=== PATIENT | female | born 1955 | race Caucasian/White ===

== ENCOUNTER 2023-03-04 00:18 | Inpatient (IN) | payer MEDICARE, SELFPAY ==
[2023-03-04] VITALS (34 sets, daily range): BP systolic 101–139; BP diastolic 49–71; PULSE 70–108; RESP 14–24; TEMP 36.3–37.3; O2SAT 90–96
--- NOTE | 2023-03-04 00:35 | ED_ITS ---
HPI - General Adult General Time Seen by Provider: 00:35 Date Seen: 03/04/23 Chief complaint: Shortness of Breath/Dyspnea Stated complaint: difficulty breathing Time Seen by Provider: 03/04/23 00:20 Source: patient, RN notes reviewed and old records reviewed Mode of arrival: ambulatory Limitations: no limitations History of Present Illness HPI narrative: 67-year-old female who comes in with shortness of breath. This is been going on since yesterday. She reports that she gets ?spasms? when she tries to take a big breath in. She denies chest pain, nausea, vomiting, diarrhea. Says she was constipated but has treated that at home. Denies lower extremity swelling. Denies cough or sinus congestion. Denies any medical problems but does not doctor frequently, does smoke cigarettes. Related Data Home Medications Medication Instructions Recorded Confirmed No Known Home Medications 03/04/23 03/04/23 Allergies Allergy/AdvReac Type Severity Reaction Status Date / Time No Known Drug Allergies Allergy Verified 03/04/23 00:26 PFSH PFS Social History Smoking Status: Current every day smoker Non-prescribed substance use: denies use Exam Narrative: Exam Narrative: General: Well-developed and well-nourished, no acute distress Head: Atraumatic and normocephalic Eyes: Pupils are equal reactive, extraocular motions intact, conjunctiva clear ENT: External nose and ears are normal, posterior pharynx without erythema or exudate Neck: No midline cervical tenderness, full spontaneous range of motion the neck, trachea midline, no adenopathy Heart: Regular rate and rhythm no murmurs or thrills Lungs: Diminished breath sounds with prolonged expiratory phase, no wheezes, occasional sharp elevation Abdomen: Soft, mild diffuse tenderness, nondistended with active bowel sounds Musculoskeletal: No tenderness, deformity, or edema Neurologic: Awake, alert, and oriented x3, no gross focal neurologic deficits, cranial nerves intact as tested Psych: Mood and affect are appropriate Skin: No rashes Const: Vital Signs, click to edit/add: Vital Signs - 24 hr 03/04/23 00:22 03/04/23 01:00 03/04/23 01:30 Temperature 97.6 F Pulse Rate [Left P ulse Oximeter] 108 H Respiratory Rate 24 Blood Pressure [Ri ght Upper Arm] 125/69 101/69 121/65 Pulse Oximetry 96 Oxygen Delivery Me thod Room Air 03/04/23 02:00 03/04/23 02:30 Temperature Pulse Rate [Left P ulse Oximeter] 84 85 Respiratory Rate 20 22 Blood Pressure [Ri ght Upper Arm] 108/60 119/60 Pulse Oximetry 96 95 Oxygen Delivery Ri thod Room Air Room Air Course Course Hospital Course: Patient seen examined, prior records reviewed. Patient presents today with shortness of breath and abdominal spasms all day yesterday. Was constipated but that is resolved. On exam here, tachycardic, lungs clear, afebrile. No abdominal tenderness on exam although patient has abdominal binder on. Labs and x-ray ordered. Reevaluation(s) Time of Reevaluation #1: 01:41 Reevaluation #1: Labs independently interpreted by me demonstrate mild respiratory alkalosis, basic panel with elevated creatinine although no baseline. Chest x-ray independently interpreted by me appears to demonstrate a small area free air under the diaphragm. Patient has no abdominal pain. No recent surgery. Will add0 CBC, lipase, hepatic panel. CT ordered. Note that lab reports lactate is already been done in this 4.5. IV fluids, Zosyn and vancomycin are ordered for perforated viscus and likely sepsis. Time of Reevaluation #2: 02:06 Reevaluation #2: Labs independently interpreted by me white count of 22.3, discussed x-ray results with Radiology Dr. Woodruff who confirms finding free air in the diaphragm. CT scan pending. Time of Reevaluation #3: 03:00 Reevaluation #3: CT scan independently interpreted by me demonstrates pneumoperitoneum with diffuse mesenteric fat stranding, no definite source of perforation. Care was discussed with Dr. Khanna, radiology who agrees and does note irregular collection of air in the lower midline pelvis which could be from a bowel loop that area. Care discussed with Dr. Guy who will review imaging. Rechecked and updated patient with diagnosis and plan, Dilaudid IV is ordered. Additional Reevaluation(s): 3:15 a.m. care discussed with Dr. Guy again, requests total of 2 L of fluids, patient has received 1500 so additional 500 will be given. Plan to go to OR 3:40 a.m. patient remains finally stable in the emergency department, heart rate is actually improved and waiting for OR for Vital Signs Vital signs: Initial Vital Signs Temperature 97.6 F 03/04/23 00:22 Temperature Source Temporal Artery Scan 03/04/23 00:22 Pulse Rate 108 H 03/04/23 00:22 Pulse Rhythm Regular 03/04/23 00:22 Respiratory Rate 24 03/04/23 00:22 Blood Pressure 125/69 03/04/23 00:22 Blood Pressure Mean 87 03/04/23 00:22 Blood Pressure Position Semi-Fowlers 03/04/23 00:22 Pulse Oximetry 96 03/04/23 00:22 Oxygen Delivery Method Room Air 03/04/23 00:22 Vital Signs Temperature 97.6 F 03/04/23 00:22 Pulse Rate 108 H 03/04/23 00:22 Respiratory Rate 24 03/04/23 00:22 Blood Pressure 125/69 03/04/23 00:22 Pulse Oximetry 96 03/04/23 00:22 Oxygen Delivery Method Room Air 03/04/23 00:22 Temperature 97.6 F 03/04/23 00:22 Pulse Rate 85 03/04/23 02:30 Respiratory Rate 22 03/04/23 02:30 Blood Pressure 119/60 03/04/23 02:30 Pulse Oximetry 95 03/04/23 02:30 Oxygen Delivery Method Room Air 03/04/23 02:30 Medical Decision Making Lab Data Labs: Lab Results 03/04/23 03/04/23 Range/Units 00:50 01:47 WBC 22.32 H (4.50-11.00) K/uL RBC 4.71 (4.00-5.20) m/uL Hgb 13.6 (12.0-16.0) gm/dL Hct 40.3 (33.0-51.0) % MCV 86 (80-100) fL MCH 29 (26-34) pg MCHC 34 (32-36) gm/dL RDW Coeff of Grace 14.1 (11.5-15.5) % Plt Count 478 H (140-440) K/uL Neut % (Auto) 89.4 H (42.0-72.0) % Lymph % (Auto) 6.0 L (20-44) % Daggett % (Auto) 2.6 (0.0-11.0) % Eos % (Auto) 0.0 (0.0-7.0) % Baso % (Auto) 0.0 (0.0-3.0) % Neut # (Auto) 20.00 H (1.7-7.0) K/uL Lymph # (Auto) 1.30 (0.90-2.90) K/uL Daggett # (Auto) 0.60 (0.00-0.90) K/UL Eos # (Auto) 0.00 (0.00-0.50) K/uL Baso # (Auto) 0.00 (0.00-0.30) K/uL VBG pH 7.494 H (7.32-7.43) VBG pCO2 29 L (40-50) mmHG VBG pO2 34.2 (25-47) mmHG VBG HCO3 22 (21-28) mmol/L Sodium 140 (135-149) mmol/L Potassium 3.8 (3.6-5.1) mmol/L Chloride 101 (96-114) mmol/L Carbon Dioxide 20 (20-32) mmol/L BUN 31 H (7-30) mg/dL Creatinine 1.9 H (0.5-1.5) mg/dL Estimated GFR 29 ml/min Glucose 126 H (60-115) mg/dL Lactate 4.5 H* (0.5-1.9) mmol/L Calcium 9.1 (8.4-10.6) mg/dL Magnesium 2.1 (1.5-2.6) mg/dL Total Bilirubin 0.5 (0.1-1.5) mg/dL Direct Bilirubin 0.3 (0.0-0.5) mg/dL AST 40 H (12-35) U/L ALT 27 (4-35) U/L Alkaline Phosphatase 115 (40-150) U/L NT-Pro-B Natriuret Pep 5500 pg/mL Total Protein 7.7 (6.0-8.3) g/dL Albumin 3.5 (3.3-5.0) g/dL Lipase 23 (23-300) U/L Lab Acknowledgement Test Added ECG Data Attestation: I personally reviewed and interpreted this ECG as follows: Prior ECG tracings: not available for review Interpretation: EKG independently return referred by me performed at 3:08 a.m. demonstrates sinus rhythm rate 87, no acute ST elevations or depressions, left anterior fascicular block, normal axis, QTC 46. No prior for comparison Critical Care Time Critical Care Time Critical Care Time: Yes (Perforated viscus, sepsis, peritonitis) Attestation: The patient required my highest level preparedness to intervene emergently and I personally spent this critical care time directly and personally managing the patient. This critical care time included: Obtaining a history; Examining the patient; Pulse oximetry; Ordering and reviewing of studies; Arranging urgent treatment with development of a management plan; Evaluation of patients response to treatment; Frequent reassessment discussions with other providers. This critical care time was performed to assess and manage the high probability of imminent life-threatening deterioration that could result in multiorgan failure. It was exclusive of separate billable procedures and treating other patients and teaching time. Total Critical Care Time in Minutes: 118 Discharge Plan Discharge Clinical Impression: Renal insufficiency, Sepsis, Smoking greater than 40 pack years, Pneumoperitoneum Patient Disposition: XFER to OR Condition: Stable
--- NOTE | 2023-03-04 00:38 | CRLHL7_ITS ---
For Patients: As a result of the Century Cures Act, medical imaging exams and procedure reports are released immediately into your electronic medical record. You may view this report before your referring provider. If you have questions, please contact your health care provider. INDICATION: Dyspnea TECHNIQUE: Chest 1 view. Permanently recorded images are archived. COMPARISON: None. FINDINGS: Cardiovascular and mediastinum: Heart size and vasculature are normal in caliber and appearance. Lungs and pleural spaces: Increased bibasilar lung markings. Blunting of the left costophrenic angle. No pneumothorax. Bones and soft tissues: Old right lateral 6th rib fracture. There is free air under the right hemidiaphragm. IMPRESSION: Pneumoperitoneum. Recommend CT of the abdomen and pelvis for further evaluation. Increased bibasilar lung markings, likely atelectasis; however, infection could appear similar. Findings discussed with Dr. Perry at 12:06 AM PST on 03/04/2023. Dictated by Beau Woodruff MD @ 03/04/2023 2:07:03 AM (Electronically Signed)
[2023-03-04] MEDS: IPRAT-ALBUT 0.5-2.5 MG/3 ML NEB 1 NEB IH (00:55)
[2023-03-04] MEDS: dexAMETHasone 10 MG/ML inj IVP (00:55)
[2023-03-04 01:02] LABS: HCO3 VBG 22 mmol/L (21-28); PCO2 VBG 29 mmHG (40-50); PO2 VBG 34.2 mmHG (25-47); pH VBG 7.494 (7.32-7.43)
[2023-03-04 01:20] LABS: Chloride* 101 mmol/L (96-114)
[2023-03-04 01:21] LABS: Potassium* 3.8 mmol/L (3.6-5.1); Sodium* 140 mmol/L (135-149)
[2023-03-04 01:23] LABS: Creatinine* 1.9 mg/dL (0.5-1.5); Estimated Glomerular Filt Rate 29 ml/min
[2023-03-04 01:24] LABS: Blood Urea Nitrogen* 31 mg/dL (7-30); Calcium* 9.1 mg/dL (8.4-10.6); Carbon Dioxide* 20 mmol/L (20-32); Glucose* 126 mg/dL (60-115); Magnesium* 2.1 mg/dL (1.5-2.6)
[2023-03-04 01:35] LABS: NT Pro B Type NatriureticPept* 5500 pg/mL
--- NOTE | 2023-03-04 01:47 | CRLHL7_ITS ---
For Patients: As a result of the Century Cures Act, medical imaging exams and procedure reports are released immediately into your electronic medical record. You may view this report before your referring provider. If you have questions, please contact your health care provider. INDICATION: Shortness of breath, pneumoperitoneum TECHNIQUE: CT chest, abdomen and pelvis acquired without IV contrast. COMPARISON: Chest radiograph from earlier today FINDINGS: Chest: Cardiovascular structures: Heart size is normal. Coronary artery calcifications. Thoracic aorta and main pulmonary artery are normal in caliber. Mediastinum and justin: No mass or adenopathy. Fluid within the esophagus up to the level of the thoracic inlet. Lungs: Emphysema. Pleura and pericardium: No effusions. Chest wall and axilla: No mass or adenopathy. Bones: Unremarkable for age. Abdomen and Pelvis: Liver: Unremarkable. Spleen: Unremarkable. Pancreas: Unremarkable. Gallbladder and bile ducts: Possible gallbladder sludge. Adrenal glands: Thickening of both adrenal glands. Kidneys: Unremarkable. GI tract: Diffuse fat stranding throughout the mesentery. Small to moderate amount of pneumoperitoneum. There is an irregular collection of air in the midline lower pelvis, best seen on image 72 series 4 which may be extraluminal. Vascular structures: Aortoiliac calcifications. 2.9 cm infrarenal abdominal aortic aneurysm. Lymph nodes: Unremarkable. Pelvic Organs: Unremarkable. Bones: Unremarkable for age. IMPRESSION: Small to moderate amount of pneumoperitoneum of uncertain etiology. Diffuse mesenteric fat stranding. Irregular collection of air in the lower midline pelvis, possibly extraluminal air. Fluid in the esophagus up to the level of the thoracic inlet suggests gastroesophageal reflux disease. 2.9 cm infrarenal abdominal aortic aneurysm. Bilateral adrenal gland hyperplasia. Possible gallbladder sludge. Findings discussed with Dr. Perry at 3 a.m. on March 04, [address] that all CT scans at this facility use dose modulation, iterative reconstruction, and/or weight-based dosing when appropriate to reduce radiation dose to as low as reasonably achievable. Dictated by Nancy Khanna MD @ 03/04/2023 3:02:10 AM (Electronically Signed)
[2023-03-04 01:54] LABS: Lactate* 4.5 mmol/L (0.5-1.9)
[2023-03-04 01:57] LABS: Hematocrit 40.3 % (33.0-51.0); Hemoglobin* 13.6 gm/dL (12.0-16.0); Mean Corpuscular HGB Conc 34 gm/dL (32-36); Mean Corpuscular Hemoglobin 29 pg (26-34); Mean Corpuscular Volume 86 fL (80-100); Monocytes Percent Auto 2.6 % (0.0-11.0); Neutrophils Percent Auto 89.4 % (42.0-72.0); Platelet Count* 478 K/uL (140-440); RDW Coefficient of Variation % 14.1 % (11.5-15.5); Red Blood Count 4.71 m/uL (4.00-5.20); White Blood Count* 22.32 K/uL (4.50-11.00)
[2023-03-04 01:58] LABS: Slide Review Reflex No
[2023-03-04] MEDS: 0.9 % SODIUM CHLORIDE 1000 ml 1,000 ML 6000 ML IV (01:58)
[2023-03-04 01:59] LABS: Albumin* 3.5 g/dL (3.3-5.0)
[2023-03-04] MEDS: PIPERACILLIN/TAZOBACTAM 3.375 GM in 0.9 % SODIUM CHLORIDE Mini-bag 100 ML IVPB (02:00)
[2023-03-04 02:02] LABS: Alanine Aminotransferase* 27 U/L (4-35); Alkaline Phosphatase* 115 U/L (40-150); Aspartate Amino Transferase* 40 U/L (12-35); Bilirubin Direct* 0.3 mg/dL (0.0-0.5); Bilirubin Total* 0.5 mg/dL (0.1-1.5); Lipase* 23 U/L (23-300); Total Protein* 7.7 g/dL (6.0-8.3)
[2023-03-04] MEDS: 0.9 % SODIUM CHLORIDE 500 ML 500 ML 1000 ML IV ×2 (02:34→03:26)
[2023-03-04] MEDS: HYDROmorphone 0.5 mg/0.5 ml inj IVP ×2 (03:15→17:53)
[2023-03-04] MEDS: 0.9 % SODIUM CHLORIDE 1000 ml 1,000 ML 125 ML IV ×2 (03:48→05:25)
--- NOTE | 2023-03-04 03:56 | ED.NURSE ---
MOLD TECHNICIAN in room
--- NOTE | 2023-03-04 04:24 | PM.GSHP ---
History of Present Illness History of Present Illness Date Seen: 03/04/23 Chief complaint: difficulty breathing Narrative: Josselyn Gutierrez is a 67 year old female presented to emergency room with crampy abdominal pain that started yesterday. Patient states that she has been having issues with constipation for her entire life. Her normal bowel movements are usually 3-4 times per week. However in the last couple months ?something changed? and it was more difficult to have a bowel movement. On Wednesday patient started to have crampy abdominal pain in the lower abdomen. She described it as severe and on and off. She stopped eating on Wednesday and was drinking liquids to stay hydrated. Patient denies any nausea or vomiting. She was passing gas. Her last bowel movement was sometime on Wednesday. In the emergency room she was found to have an elevated WBC of 22. She was found to be tachycardic to 1 await with normal blood pressure. Her lactate was 4.5. Her creatinine was 1.9. An abdominal CT was obtained that showed small to moderate amount of pneumoperitoneum with diffuse inflammatory changes. There was an extraluminal air pocket in the pelvis adjacent to distal sigmoid colon with no evidence of an abscess. Review of Systems Narrative: General: no fevers HENT: no problems swallowing CV: Difficult to take a deep breath due to pain. Otherwise denies shortness of breath Resp: no cough GI: See above Skin: no new rashes Psyche: no depression, no anxiety PFSH PFSH Surgical History (Updated 03/04/23 @ 04:29 by Clint Guy MD) H/O exploratory laparotomy ?Z98.890 - Other specified postprocedural states (ICD-10) H/O knee surgery ?Z98.890 - Other specified postprocedural states (ICD-10) Social History (Updated 03/04/23 @ 04:29 by Clint Guy MD) Narrative: Patient is self-employed and does heavy lifting for living. Smoking Status: Current every day smoker Non-prescribed substance use: denies use Meds Home Medications and Allergies Home Medications Medication Instructions Recorded Confirmed Type No Known Home Medications 03/04/23 03/04/23 History Allergies Allergy/AdvReac Type Severity Reaction Status Date / Time No Known Drug Allergies Allergy Verified 03/04/23 00:26 Exam Narrative: Exam Narrative: General appearance: Alert, cooperative, and in no distress Pulmonary: Chest symmetric, lungs clear bilaterally Cardiovascular Heart: Regular rate and rhythm, S1, S2, no murmurs/rubs/gallops Gastrointestinal Abdominal: soft, not distended, tender to percussion in epigastrium, tender to palpation in the right lower quadrant and epigastrium and less tender in the left lower quadrant. Patient has rebound tenderness. Skin: Normal skin color, texture, and turgor. No rashes or lesions. Psychiatric: Alert, cooperative, normal affect. Const: Vital Signs, click to edit/add: Vital Signs - 24 hr 03/04/23 00:22 03/04/23 01:00 03/04/23 01:30 Temperature 97.6 F Pulse Rate Pulse Rate [Left P ulse Oximeter] 108 H Respiratory Rate 24 Blood Pressure Blood Pressure [Ri ght Upper Arm] 125/69 101/69 121/65 Pulse Oximetry 96 Oxygen Delivery Me thod Room Air 03/04/23 02:00 03/04/23 02:30 03/04/23 03:10 Temperature Pulse Rate 85 Pulse Rate [Left P ulse Oximeter] 84 85 Respiratory Rate 20 22 Blood Pressure Blood Pressure [Ri ght Upper Arm] 108/60 119/60 Pulse Oximetry 96 95 93 Oxygen Delivery Me thod Room Air Room Air 03/04/23 03:30 03/04/23 03:31 Temperature Pulse Rate 80 81 Pulse Rate [Left P ulse Oximeter] Respiratory Rate Blood Pressure 109/54 L Blood Pressure [Ri ght Upper Arm] Pulse Oximetry 91 90 Oxygen Delivery Me thod Assessment and Plan Assessment and plan (1) Pneumoperitoneum: Status: Acute Plan 67-year-old female presents with abdominal pain and pneumoperitoneum of unclear etiology. I discussed with the patient her laboratory and CT findings. On her CT she has moderate amount of free air with a focus of extraluminal air next to her sigmoid colon that is suspicious for sigmoid perforation. I discussed with the patient that I would recommend to proceed with emergent exploratory laparotomy. If her perforation is in the sigmoid colon, would proceed with sigmoidectomy and end colostomy. The procedure was discussed in detail. The risks associated procedure including infection, bleeding, injury to intra-abdominal organs, the need for further procedures, and postoperative lifting restrictions were all discussed with the patient, and she agreed to proceed.
--- NOTE | 2023-03-04 04:35 | ED.NURSE ---
PT taken to OR
[2023-03-04] MEDS: ERTAPENEM 1 GM in 0.9 % SODIUM CHLORIDE Mini-bag 100 ML IVPB (05:00)
--- NOTE | 2023-03-04 08:33 | W.ANESCHARGE ---
Anesthesia Charges Start Date/Time Anesthesia Start Date: 03/04/23 Anesthesia Start Time: 04:35 Stop Date/Time Anesthesia Stop Date: 03/04/23 Anesthesia Stop Time: 08:29 Summary Emergency: JUNIOR ADMINISTRATIVE ASSISTANT
--- NOTE | 2023-03-04 08:34 | P.NB_ITS ---
Nerve Block Nerve Block Time Seen by Provider: 08:15 Date Seen: 03/04/23 Type of block requested by surgeon for post-operative analgesia: TAP Side: bilateral Time out performed: Yes Verification of patient name: Yes Verification of date of : Yes Site marking: site marked Name of person performing procedure: Antoine Continuous monitoring Was continuous monitoring of O2 sat, B/P, cardiac cath rn, recorded every 15 minutes?: Yes Procedure Checklist: sterile prep, needles and gloves Ultrasound guided. Images saved: Yes Medications given in 5ml increments after negative aspiration: Marcaine %: 0.25 mL: 30 Needle gauge: 20 and Exparel mL: 10 Patient tolerated procedure well: Yes Additional comments: Needle noted adjacent to nerve Block Charges Block Charge (with Pro Fee): TAP Bilateral Use of Ultrasound Machine for Block: Yes- US Guidance/pain block
--- NOTE | 2023-03-04 08:59 | P.GSOP_ITS ---
Operative Note Date of procedure: 03/04/23 Pre-op diagnosis: 1. Pneumoperitoneum. Post-op diagnosis: 1. Perforated sigmoid diverticulitis with purulent peritonitis. Type of Procedure: 1. Exploratory laparotomy. 2. Sigmoidectomy with Brandon's pouch and end descending colostomy. Indications: 67-year-old female presented to emergency room with crampy abdominal pain that started yesterday. The pain was intermittent but was so severe that patient came into the emergency room. Patient usually does not go to medical providers at all. Patient also indicated that she was having trouble with constipation in the last couple months. She has never had a colonoscopy. He denies family history of colon polyps or cancer. On clinical exam she had tenderness to palp ation in the right lower quadrant and epigastrium with diffuse rebound tenderness. Upon her workup she was found to have an elevated WBC of 22. An abdominal CT was obtained that showed moderate amount of pneumoperitoneum. There was a segment of sigmoid colon that had an adjacent extraluminal pocket of air that was thought to be the source of perforation. There was also diffuse mesenteric edema. Given patient's history and clinical exam, emergent exploratory laparotomy was recommended. The procedure was discussed in detail. The risks associated procedure including infection, bleeding, colonic or small- bowel resection, and end colostomy were all discussed with the patient, and she agreed to proceed. Procedure Description: After discussing the risks and benefits of the procedure, the patient signed informed consent.? The operative site was marked and the patient was brought to the operating room and placed on the operating table in supine position.? Care was taken to pad the patient's pressure points.?? The patient was then intubated by anesthesia.??Hall catheter was placed under sterile conditions. The operative site was then prepped and draped in the usual sterile fashion.? A time-out was then performed. Midline laparotomy incision was made with a scalpel. Subcutaneous fat was divided with cautery down to the anterior fascia. The anterior fascia was grasped with Sarina clamps and incised with cautery. Preperitoneal fat and posterior fascia were grasped with Saolni clamps and the abdomen was entered with cautery. The incision was then extended superiorly and inferiorly through all the layers of abdominal wall with cautery. Large amount of purulent fluid was noted and suctioned out from the abdomen. Fibrinous exudate was covering majority of the small bowel loops. There was no gregorio stool noted. The small bowel was briefly examined and no areas of firmness or inflammation were noted. The small bowel was then retracted cephalad. The Omni retractor was placed and positioned to expose the pelvis. The sigmoid colon was identified and was very firm to palpation. The sigmoid colon was tightly adherent to the left abdominal wall with dense fibrotic adhesions. Pericolonic abscess between anterior lateral sigmoid colon and peritoneum was entered and additional purulent fluid was suctioned out. The uterus was tightly adherent to the sigmoid colon and those adhesions were taken down with cautery. The uterus was then retracted caudad. I then proceeded with mobilizing the sigmoid colon off the left lateral abdominal wall. This mobilization was difficult because of dense fibrotic adhesions. Some of the adhesions were broken down bluntly with my fingers and others were divided with cautery and Metzenbaum scissors. Hemostasis throughout the case was achieved with cautery and Vicryl ties. The sigmoid colon was mobilized down to peritoneal reflection and it was soft to palpation at the matthieu toneal reflection and was soft to palpation at the descending colon. The sigmoid colon mesentery was then divided with clamps and ties starting near the descending colon and margin down into the pelvis. During this mobilization I was able to finally identify the perforated diverticulum with small amount of stool spilling through the perforation. This stool was suctioned out and the perforation was oversewn with silk suture to contain contamination. The distal sigmoid colon was then divided using a contour stapler at the peritoneal reflection. The specimen was then passed off the field and examined on the back table at the end of the procedure. Thickened sigmoid colonic wall was noted with no intraluminal mass. This was confirming our suspicion for diverticulitis. The Brandon's pouch staple line was examined and no bleeding was seen from the staple line. The distal descending colon end was then identified and lateral peritoneum was mobilized by dividing the White line of Toldt with cautery. Colonic mesentery was divided just near the staple line with clips and ties to allow mobilization of the descending colon to the abdominal wall. We then proceeded with creating end colostomy. I had a good reach up to the abdominal wall of the free end of descending colon. Anterior fascia on the left side was grasped with Sarina clamps to stabilize it. A skin incision was made in the left mid abdomen for a colostomy opening. This was done with cautery. Subcutaneous fat was excised in a cone like fashion down to the anterior fascia. A longitudinal vertical fascial incision was then made with cautery. Rectus muscle was identified and retracted laterally and medially. Peritoneum and posterior fascia were grasped and incised with cautery as well. The incision was made large enough to fit two fingers through this colostomy opening. The free end of descending colon was then grasped with Fabi clamps and exteriorized. There was a good length of exteriorized colon available and no significant tension was noted on descending mesentery intra- abdominally. The colon and was full of stool and I had to milk some of the stool proximally to be able to exterior rise the colostomy and. The exteriorized colon was sutured to anterior fascia with interrupted Vicryl sutures. We then proceeded with the abdominal closure. The abdomen was irrigated with warm normal saline. The pelvis was re-examined and no bleeding was seen from the surgical site. The small bowel was then again examined from the ligament of Treitz to the ileocecal valve and no injuries or areas of inflammation were noted in the small bowel. There was a small segment of small bowel mesentery that was adherent to the abscess cavity and mobilized bluntly that appeared ecchymotic. There was no evidence of serosal tear in this segment. The omentum was then placed over the small bowel. The NG tube that was placed by Anesthesia was palpated in the stomach. The anterior fascia was then closed with 2 running 0-0 Maxon sutures. The midline laparotomy incision was then irrigated with normal saline. The skin of the laparotomy incision was loosely reapproximated with interrupted 3-0 Vicryl sutures. The skin was then closed with ainsley and the inferior 2 cm of the incision was left open. This open part of the incision was packed with iodoform Nu Gauze. The incision was then covered with a towel and we proceeded with maturing the end colostomy. The staple line of the descending colon that was exteriorized was excised with cautery. Soft pasty stool came out from the lumen and that was removed. Colonic edges were congested. The stoma was intubated and the fascial opening did not appear to be obstructing the colostomy. Mucosa of end colostomy was then sutured in place to the dermis circumferentially in a [place] like fashion. This was done with Vicryl sutures. A stoma appliance was placed over the colostomy at the end of the case. The midline laparotomy incision was then c overed by sterile dressing and tape. ? The patient was then woken and transported to the recovery area in stable condition. ? The patient tolerated the procedure well. Findings: Perforated sigmoid diverticulitis with extensive fibrotic adhesions of the sigmoid colon to the lateral abdominal wall most likely due to smoldering diverticulitis or chronic diverticulitis. Anesthesia: GETA Surgeon: Clint Guy MD Estimated blood loss (mL): 50 Additional Specimen Information: 1. Sigmoid colon. Condition: stable Disposition: PACU
[2023-03-04] MEDS: LACTATED RINGERS 1000 ML 1,000 ML 100 ML IV (09:08)
[2023-03-04] MEDS: NICOTINE 21 MG PATCH 1 PATCH TRANSDERMA (09:39)
[2023-03-04 10:35] LABS: Appearance Urine Clear (Clear); Bilirubin Urine Negative (Negative); Blood Urine Negative (Negative); Color Urine Dark yellow (Yellow); Glucose Urine Negative (Negative); Ketones Urine Negative (Negative); Leukocyte Esterase Urine Negative (Negative); Nitrite Urine Negative (Negative); Protein Urine 2+ (Negative); Specific Gravity Urine >= 1.030 (1.000-1.030); pH Urine 5.5 (5.0-8.5)
[2023-03-04 10:44] LABS: Coarse Granular Casts Urine Moderate; RBC Urine 0-2 (0-2); Squamous Epithelial Cell Urine Moderate (None-Few); WBC Urine 0-2 (0-5)
[2023-03-04 10:49] LABS: Cannabinoid Screen Urine Negative (Negative); Cocaine Screen Urine Negative (Negative); Phencyclidine Screen Urine Negative (Negative)
[2023-03-04 10:50] LABS: Amphetamine Screen Urine Negative (Negative); Benzodiazepines Screen Urine Negative (Negative); Methamphetamines Screen Urine POSITIVE (Negative); Opiate Screen Urine Negative (Negative)
[2023-03-04 10:51] LABS: Barbiturate Screen Urine Negative (Negative); Methadone Screen Urine Negative (Negative); Oxycodone Screen Urine Negative (Negative); Tricyclic Antidepressant Urine Negative (Negative)
--- NOTE | 2023-03-04 11:00 | P.IMHP_ITS ---
Hospitalist- H&P: HPI History of Present Illness Date Seen: 03/04/23 Chief complaint: difficulty breathing Narrative: Josselyn Gutierrez is a 67 year old female admitted through the emergency department with 1 day history of shortness of breath. Patient described that she could not catch her breath. Is also painful in her abdomen to take a deep breath. Prior to this she was generally feeling well. In the emergency department she was found to have free air in her abdomen on CT scan. She was taken emergently to the operating room where she was found to have perforated sigmoid diverticulosis and peritonitis. History was obtained from the patient and limited medical records. She is still somewhat sedated after surgery so history is quite limited. She does not see a physician for routine health care and has not had medical care in years. Postoperatively she reports no complaints. She is requiring 5 L of oxygen by face mask to maintain her O2 sats. Her vital signs are relatively normal. Mucous membranes are quite dry. NG tube is in place. Hall catheter is in place with minimal urine output. Colostomy bag is in place with minimal dark red fluid in it. Review of Systems Narrative: Unable to obtain due to altered mental status [facility] Medical History (Updated 03/04/23 @ 11:11 by Burak Brady MD) Sepsis with acute hypoxic respiratory failure ?A41.9 - Sepsis, unspecified organism (ICD-10) ?R65.20 - Severe sepsis without septic shock (ICD-10) ?J96.01 - Acute respiratory failure with hypoxia (ICD-10) Substance abuse ?F19.10 - Other psychoactive substance abuse, uncomplicated (ICD-10) Perforation of sigmoid colon due to diverticulitis ?K57.20 - Diverticulitis of large intestine with perforation and abscess without bleeding (ICD-10) Surgical History H/O exploratory laparotomy ?Z98.890 - Other specified postprocedural states (ICD-10) H/O knee surgery ?Z98.890 - Other specified postprocedural states (ICD-10) Social History Narrative: Patient is self-employed and does heavy lifting for living. Smoking Status: Current every day smoker Non-prescribed substance use: denies use Meds Home Medications and Allergies Home Medications Medication Instructions Recorded Confirmed Type No Known Home Medications 03/04/23 03/04/23 History Allergies Allergy/AdvReac Type Severity Reaction Status Date / Time No Known Drug Allergies Allergy Verified 03/04/23 00:26 Exam Narrative: Exam Narrative: She is sleepy but arouses to voice. Eyes are normal. Oropharynx with very dry mucous membranes. NG draining a dark brown fluid. Neck is supple without mass or adenopathy. Respirations with diminished breath sounds but no marked wheezing rales or rhonchi. Fair air exchange all lung villatoro. Cardiovascular: S1, S2, regular rate and rhythm. Abdomen: Bowel sounds minimal. Midline incision covered with a bandage. Left-sided colostomy with minimal dark red blood in the bag. Diffuse tenderness. External genitalia normal. Hall nenita ter in place. Extremities without edema. She has intact peripheral pulses. She moves all 4 extremities well. Const: Vital Signs, click to edit/add: Vital Signs - 24 hr 03/04/23 00:22 03/04/23 01:00 03/04/23 01:30 Temperature 97.6 F Pulse Rate Pulse Rate [Left P ulse Oximeter] 108 H Respiratory Rate 24 Blood Pressure Blood Pressure [Ri ght Upper Arm] 125/69 101/69 121/65 Pulse Oximetry 96 Oxygen Delivery Me thod Room Air Oxygen Flow Rate 03/04/23 02:00 03/04/23 02:30 03/04/23 03:10 Temperature Pulse Rate 85 Pulse Rate [Left P ulse Oximeter] 84 85 Respiratory Rate 20 22 Blood Pressure Blood Pressure [Ri ght Upper Arm] 108/60 119/60 Pulse Oximetry 96 95 93 Oxygen Delivery Me thod Room Air Room Air Oxygen Flow Rate 03/04/23 03:30 03/04/23 03:31 03/04/23 03:32 Temperature Pulse Rate 80 81 80 Pulse Rate [Left P ulse Oximeter] Respiratory Rate Blood Pressure 109/54 L Blood Pressure [Ri ght Upper Arm] Pulse Oximetry 91 90 91 Oxygen Delivery Me thod Oxygen Flow Rate 03/04/23 04:00 03/04/23 04:01 03/04/23 08:24 Temperature 99.1 F Pulse Rate 92 84 93 Pulse Rate [Left P ulse Oximeter] Respiratory Rate 16 Blood Pressure 127/64 139/71 Blood Pressure [Ri ght Upper Arm] Pulse Oximetry 92 91 94 Oxygen Delivery Me thod OxyMask Oxygen Flow Rate 10 03/04/23 08:30 03/04/23 08:35 03/04/23 08:40 Temperature Pulse Rate 94 87 85 Pulse Rate [Left P ulse Oximeter] Respiratory Rate 16 14 14 Blood Pressure 136/64 134/63 129/61 Blood Pressure [Ri ght Upper Arm] Pulse Oximetry 93 93 94 Oxygen Delivery Me thod OxyMask OxyMask OxyMask Oxygen Flow Rate 10 10 10 03/04/23 08:45 03/04/23 08:50 03/04/23 08:54 Temperature 98.1 F Pulse Rate 87 85 87 Pulse Rate [Left P ulse Oximeter] Respiratory Rate 14 14 14 Blood Pressure 128/67 127/62 131/68 Blood Pressure [Ri ght Upper Arm] Pulse Oximetry 93 92 94 Oxygen Delivery Me thod OxyMask OxyMask OxyMask Oxygen Flow Rate 10 10 10 03/04/23 09:31 Temperature Pulse Rate 84 Pulse Rate [Left P ulse Oximeter] Respiratory Rate Blood Pressure Blood Pressure [Ri ght Upper Arm] Pulse Oximetry Oxygen Delivery Me thod Oxygen Flow Rate Documenting provider has reviewed patient's vital signs: yes Hospitalist - H&P: Result Labs Labs: Short CBC 03/04/23 Range/Units 00:50 WBC 22.32 H (4.50-11.00) K/uL Hgb 13.6 (12.0-16.0) gm/dL Hct 40.3 (33.0-51.0) % Plt Count 478 H (140-440) K/uL BMP 03/04/23 00:50 Sodium 140 Potassium 3.8 Chloride 101 Carbon Dioxide 20 BUN 31 H Creatinine 1.9 H Glucose 126 H Calcium 9.1 Liver Function 03/04/23 Range/Units 00:50 Total Bilirubin 0.5 (0.1-1.5) mg/dL Direct Bilirubin 0.3 (0.0-0.5) mg/dL AST 40 H (12-35) U/L ALT 27 (4-35) U/L Alkaline Phosphatase 115 (40-150) U/L Albumin 3.5 (3.3-5.0) g/dL Urine 03/04/23 Range/Units 10:26 Urine Color Dark yellow (Yellow) Urine Appearance Clear (Clear) Urine pH 5.5 (5.0-8.5) Ur Specific [place] >= 1.030 (1.000-1.030) Urine Protein 2+ A (Negative) Urine Glucose (UA) Negative (Negative) Imaging CT Chest/Ab/Pelvis: Radiologist's impression: INDICATION: Shortness of breath, pneumoperitoneum TECHNIQUE: CT chest, abdomen and pelvis acquired without IV contrast. COMPARISON: Chest radiograph from earlier today FINDINGS: Chest: Cardiovascular structures: Heart size is normal. Coronary artery calcifications. Thoracic aorta and main pulmonary artery are normal in caliber.? ? Mediastinum and justin: No mass or adenopathy. Fluid within the esophagus up to the level of the thoracic inlet. Lungs: Emphysema. Pleura and pericardium: No effusions.? Chest wall and axilla: No mass or adenopathy.? Bones: Unremarkable for age.? Abdomen and Pelvis: Liver: Unremarkable.? Spleen: Unremarkable.? Pancreas: Unremarkable.? Gallbladder and bile ducts: Possible gallbladder sludge. Adrenal glands: Thickening of both adrenal glands. Kidneys: Unremarkable.? GI tract: Diffuse fat stranding throughout the mesentery. Small to moderate amount of pneumoperitoneum. There is an irregular collection of air in the midline lower pelvis, best seen on image 72 series 4 which may be extraluminal. Vascular structures: Aortoiliac calcifications. 2.9 cm infrarenal abdominal aortic aneurysm. Lymph nodes: Unremarkable.? Pelvic Organs: Unremarkable.? Bones: Unremarkable for age.? IMPRESSION: Small to moderate amount of pneumoperitoneum of uncertain etiology. Diffuse mesenteric fat stranding. Irregular collection of air in the lower midline pelvis, possibly extraluminal air. Fluid in the esophagus up to the level of the thoracic inlet suggests gastroesophageal reflux disease. 2.9 cm infrarenal abdominal aortic aneurysm. Bilateral adrenal gland hyperplasia. Possible gallbladder sludge. Assessment and Plan Assessment and plan (1) Perforation of sigmoid colon due to diverticulitis: Status: Acute (2) Sepsis: Status: Acute (3) Sepsis with acute hypoxic respiratory failure: Problem comment: I favor sedation from anesthesia as well as surgery, abdominal pain and underlying COPD as likely explanations for current hypoxia. Monitor closely. Status: Acute (4) Smoking greater than 40 pack years: Problem comment: Nicotine patch Status: Acute (5) Renal insufficiency: Problem comment: Continue fluid resuscitation. Monitor fluid and electrolytes closely. Status: Acute (6) Substance abuse: Problem comment: Methamphetamine on urine tox screen Status: Acute Plan Patient is hospitalized for recovery from surgery. Will need antibiotics and IV fluid resuscitation. Close monitoring of vital signs and fluid status and urine output. Total time spent today is 80 minutes, 50 minutes in coordination of care and discussing with other providers ongoing management of peritonitis and respiratory failure and postoperative complications.
[2023-03-04 11:13] LABS: HCO3 VBG 21 mmol/L (21-28); PCO2 VBG 33 mmHG (40-50); PO2 VBG 50.1 mmHG (25-47); pH VBG 7.413 (7.32-7.43)
[2023-03-04 11:14] LABS: Lactate* 1.4 mmol/L (0.5-1.9)
[2023-03-04 11:35] LABS: Chloride* 113 mmol/L (96-114); Potassium* 3.9 mmol/L (3.6-5.1); Sodium* 140 mmol/L (135-149)
[2023-03-04 11:38] LABS: Creatinine* 1.3 mg/dL (0.5-1.5); Estimated Glomerular Filt Rate 45 ml/min
[2023-03-04 11:39] LABS: Blood Urea Nitrogen* 30 mg/dL (7-30); Calcium* 6.9 mg/dL (8.4-10.6); Carbon Dioxide* 18 mmol/L (20-32); Glucose* 120 mg/dL (60-115)
[2023-03-04 11:53] LABS: Troponin I* < 0.01 ng/mL (0.01-0.04)
[2023-03-04 12:12] LABS: C Reactive Protein* 46.1 mg/dL (0.5-1.0)
[2023-03-04] MEDS: LACTATED RINGERS 500 ML 500 ML IV (14:15)
[2023-03-04] MEDS: LACTATED RINGERS 1000 ML 1,000 ML 125 ML IV ×2 (16:29→23:52)
--- NOTE | 2023-03-04 18:01 | PC.NURSE ---
Minimal amount of coffee ground output from NG which is applied to low intermittent suction. Bowel sounds absent. Abdominal dressing dry and intact. Colostomy in place. Dilaudid IV used for pain control.
[2023-03-05] VITALS (10 sets, daily range): BP systolic 106–145; BP diastolic 60–81; PULSE 59–93; RESP 16–18; TEMP 36.4–36.9; O2SAT 90
--- NOTE | 2023-03-05 04:16 | PC.NURSE ---
Pt rested comfortably tonight. Voiding via Hall. NG present with intermittent suction. BS absent. Midline Wound CDI. Pt on 3.5 L NC to maintain sats in the low 90s.
[2023-03-05] MEDS: ERTAPENEM 1 GM in 0.9 % SODIUM CHLORIDE Mini-bag 100 ML IVPB (05:03)
[2023-03-05 07:04] LABS: Hematocrit 29.8 % (33.0-51.0); Hemoglobin* 9.8 gm/dL (12.0-16.0); Immature Granulocytes Pct Auto 1.6 %; Lymphocytes Percent Auto 5.9 % (20-44); Mean Corpuscular HGB Conc 33 gm/dL (32-36); Mean Corpuscular Hemoglobin 29 pg (26-34); Mean Corpuscular Volume 87 fL (80-100); Neutrophils Percent Auto 88.5 % (42.0-72.0); Platelet Count* 385 K/uL (140-440); Red Blood Count 3.41 m/uL (4.00-5.20); White Blood Count* 20.81 K/uL (4.50-11.00)
[2023-03-05 07:07] LABS: Slide Review Reflex No
[2023-03-05 07:17] LABS: Chloride* 109 mmol/L (96-114); Potassium* 3.5 mmol/L (3.6-5.1); Sodium* 141 mmol/L (135-149)
[2023-03-05 07:20] LABS: Blood Urea Nitrogen* 25 mg/dL (7-30); Carbon Dioxide* 26 mmol/L (20-32); Estimated Glomerular Filt Rate 62 ml/min
[2023-03-05 07:21] LABS: Calcium* 7.5 mg/dL (8.4-10.6); Glucose* 87 mg/dL (60-115)
[2023-03-05] MEDS: LACTATED RINGERS 1000 ML 1,000 ML 125 ML IV (08:55)
[2023-03-05 09:18] LABS: Albumin* 2.5 g/dL (3.3-5.0)
--- NOTE | 2023-03-05 09:33 | PM.GSPN ---
Subjective Subjective Date Seen: 03/05/23 Interval history: Josselyn states that she did fine overnight. She states that her pain has been tolerable. She feels as though her breathing has improved. She has not been out of bed since surgery. Exam Narrative: Exam Narrative: General: No acute distress HEENT: Partially edentulous. NG in place with bilious output. Three hundred out yesterday CV: Regular rate and rhythm Pulmonary: No crackles bilaterally. Breath sounds on left are faintly distant however present. Abdomen: Dressing changed today. No erythema. Stoma also taken down because was not able to visualize in the stoma bag. This is because it is situated on the abdominal crease. Stoma is pink. Small amount of stool in the bag. Attempted a convex attachment to her appliance which will hopefully help the stoma sit better on the skin. Extremities: No edema Const: Vital Signs, click to edit/add: Vital Signs - 24 hr 03/04/23 09:45 03/04/23 10:00 03/04/23 10:30 Temperature 97.6 F Pulse Rate [Apical ] 77 75 71 Respiratory Rate 18 18 18 Blood Pressure [Le ft Arm] 115/55 L 117/58 L 107/55 L Pulse Oximetry 95 94 94 Oxygen Delivery Me thod OxyMask Nasal Cannula Nasal Cannula Oxygen Flow Rate 5 2 2 03/04/23 11:00 03/04/23 11:30 03/04/23 12:00 Temperature 97.9 F Pulse Rate [Apical ] 73 72 70 Respiratory Rate 20 18 18 Blood Pressure [Le ft Arm] 107/50 L 104/52 L 101/49 L Pulse Oximetry 95 95 93 Oxygen Delivery Me thod Nasal Cannula Nasal Cannula Nasal Cannula Oxygen Flow Rate 2 2 2 03/04/23 13:00 03/04/23 14:00 03/04/23 15:00 Temperature 98.3 F 98.0 F Pulse Rate [Apical ] 73 84 87 Respiratory Rate 20 18 20 Blood Pressure [Le ft Arm] 109/54 L 105/50 L 131/67 Pulse Oximetry 94 92 93 Oxygen Delivery Me thod Nasal Cannula Nasal Cannula Nasal Cannula Oxygen Flow Rate 2 2 2 03/04/23 15:00 03/04/23 19:30 03/04/23 23:09 Temperature 98.3 F 97.6 F Pulse Rate [Apical ] 79 70 Respiratory Rate 18 18 Blood Pressure [Le ft Arm] 110/64 118/57 L Pulse Oximetry 93 91 91 Oxygen Delivery Me thod Nasal Cannula Nasal Cannula Nasal Cannula Oxygen Flow Rate 2 2 2 03/04/23 23:11 03/05/23 01:58 03/05/23 07:30 Temperature 97.6 F Pulse Rate [Apical ] 80 Respiratory Rate 18 18 Blood Pressure [Le ft Arm] 106/63 Pulse Oximetry 91 90 90 Oxygen Delivery Me thod Nasal Cannula Nasal Cannula Nasal Cannula Oxygen Flow Rate 2 3.5 3.5 03/05/23 07:33 Temperature 98.3 F Pulse Rate [Apical ] 93 Respiratory Rate 18 Blood Pressure [Le ft Arm] 126/75 Pulse Oximetry 90 Oxygen Delivery Me thod Nasal Cannula Oxygen Flow Rate 3.5 Labs/Imaging Labs Labs: Creatinine has improved to 1.0. Hemoglobin is 9.8 from 13.6 White count 20 from 26/10 Progress Note: A&P Assessment and plan (1) Sepsis with acute hypoxic respiratory failure: Problem details: I favor sedation from pain medications as well as surgery, abdominal pain and underlying COPD as likely explanations for current hypoxia. Continue to monitor. Appears improved. Does not appear to be having a COPD exacerbation or cardiopulmonary complication. Status: Acute (2) Substance abuse: Problem details: Methamphetamine on urine tox screen Status: Acute (3) Perforation of sigmoid colon due to diverticulitis: Problem details: Status post surgery with colostomy. Surgery to manage stoma and surgical incisions and NG tube. Anticipate problems with volume status and 3rd spacing of fluid in the abdomen. Anticipate postoperative ileus. Continue antibiotics for peritonitis. Status: Acute (4) Smoking greater than 40 pack years: Problem details: Nicotine patch Status: Acute (5) Renal insufficiency: Problem details: Continue fluid resuscitation. Monitor fluid and electrolytes closely. Continue Hall catheter until reliably good urine output and better fluid management. Possible removal of Hall tomorrow. Status: Acute (6) History of open sigmoidectomy: Status: Acute (7) Colostomy in place: Status: Acute (8) Hypovolemia: Problem details: Much improved with fluid resuscitation yesterday. Continue to monitor. Continue Hall briefly for assistance with monitoring of volume status Status: Acute (9) Anemia: Problem details: The drop in hemoglobin from preop to postop is likely due to fluid resuscitation. Does not appear to be having significant GI bleed. I doubt significant intraoperative bleed but will closely monitor hemoglobin. Hold VTE prophylaxis until hemoglobin stabilizes. If hemoglobin stabilizes patient should have outpatient follow-up of anemia. Status: Acute Plan Josselyn is a 67-year-old female who is postop day 1 status post exploratory laparotomy and sigmoidectomy for perforated diverticulitis with purulent peritonitis. -hypoxemic respiratory failure improving. Continue IS and supplemental oxygen. Will ask RT to see if there are exercises which can help avoid pneumonia or further pulmonary issues. -renal insufficiency and likely hypovolemia. Continue maintenance IV fluids. Continue Hall to monitor urine output as it was marginal overnight. -anemia P this is very possibly chronic with that degree of acute blood loss. She does not have any signs and symptoms of ongoing bleeding. Minimal blood loss per op report. Will hold on Lovenox today and recheck hemoglobin tomorrow. -continue NG tube/NPO as significant ileus expected. -continue IV antibiotics until white count normalizes. -encourage patient to ambulate. -stoma RN teaching.
--- NOTE | 2023-03-05 11:12 | RESP.RT ---
Patient is SATing 93% on 4L NC. She states that she has been smoking 2-3packs a day for the past 50 years. She is currently not on any inhalers or supplemental O2. We will need to assess her ability to be weaned off of O2 and she should start on a COPD maintenance program.
[2023-03-05] MEDS: HYDROmorphone 0.5 mg/0.5 ml inj IVP ×3 (11:40→20:44)
--- NOTE | 2023-03-05 14:54 | PC.NURSE ---
End of shift note... VS on 3.5 L of O2, incisional dressing CDI with old drainage outlined. Scant amount of out of colostomy. Hypoactive BS in all 4 quadrants. Pt reports 5/10 pain at times, PRN Dilaudid given 1x, with adequate relief with rating of 2/10. Ice applied throughout the day. NPO w/ ice chips only, PO intake of 250, with 300 of clear luis a urine out of raoms. NG connected to LIS with 400 of green/brown stomach contents. Up to the chair this morning. Social work consult ordered, spoke to patient this afternoon regarding concerns. Pt requests no visitors unless authorized through her prior, charge nurse notified.
--- NOTE | 2023-03-05 15:03 | PC.SOCIAL ---
Met with patient in room. Patient voiced concerns about losing job due to being hospitalized and recovery time. 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 Patient also states that she will lose her apartment due to the lack of income. Given resources for [facility] and [address] [place] [phone] for possible temporary financial assistance. Patient refuses critical access hospital help, but with contact [address] [place] [phone]. Social work to follow up as needed.
--- NOTE | 2023-03-05 15:18 | PM.IMPN1 ---
Progress Note: A&P Assessment and plan (1) Sepsis with acute hypoxic respiratory failure: Problem details: I favor sedation from pain medications as well as surgery, abdominal pain and underlying COPD as likely explanations for current hypoxia. Continue to monitor. Appears improved. Does not appear to be having a COPD exacerbation or cardiopulmonary complication. Status: Acute (2) Perforation of sigmoid colon due to diverticulitis: Problem details: Status post surgery with colostomy. Surgery to manage stoma and surgical incisions and NG tube. Anticipate problems with volume status and 3rd spacing of fluid in the abdomen. Anticipate postoperative ileus. Continue antibiotics for peritonitis. Status: Acute (3) Smoking greater than 40 pack years: Problem details: Nicotine patch Status: Acute (4) Renal insufficiency: Problem details: Continue fluid resuscitation. Monitor fluid and electrolytes closely. Continue Hall catheter until reliably good urine output and better fluid management. Possible removal of Hall tomorrow. Status: Acute (5) Hypovolemia: Problem details: Much improved with fluid resuscitation yesterday. Continue to monitor. Continue Hall briefly for assistance with monitoring of volume status Status: Acute (6) Substance abuse: Problem details: Methamphetamine on urine tox screen Status: Acute (7) Anemia: Problem details: The drop in hemoglobin from preop to postop is likely due to fluid resuscitation. Does not appear to be having significant GI bleed. I doubt significant intraoperative bleed but will closely monitor hemoglobin. Hold VTE prophylaxis until hemoglobin stabilizes. If hemoglobin stabilizes patient should have outpatient follow-up of anemia. Status: Acute (8) Bacteremia: Problem details: Gram-positive cocci in clusters on blood culture. Initiate vancomycin pending culture results. Status: Acute Plan Continue in hospital for ongoing management of pain, hypoxia, ileus, peritonitis, bacteremia. Total time spent today is 45 minutes, 30 minutes in coordination of care and discussing with patient and other providers management of fluids, pain, hypoxia, postop disability, bacteremia. Subjective Date Seen: 03/05/23 Interval history: Josselyn Gutierrez is a 67 year old female admitted through the emergency department with 1 day history of shortness of breath.? Patient described that she could not catch her breath.? Is also painful in her abdomen to take a deep breath. Prior to this she was generally feeling well.? In the emergency department she was found to have free air in her abdomen on CT scan.? She was taken emergently to the operating room where she was found to have perforated sigmoid diverticulosis and peritonitis. History was obtained from the patient and limited medical records.? She is still somewhat sedated after surgery so history is quite limited.? She does not see a physician for routine health care and has not had medical care in years. Postoperatively she reports no complaints.? She is requiring 5 L of oxygen by face mask to maintain her O2 sats.? Her vital signs are relatively normal.? Mucous membranes are quite dry.? NG tube is in place.? Hall catheter is in place with minimal urine output.? Colostomy bag is in place with minimal dark red fluid in it. Fluid resuscitation knee yesterday improved her urine output. She has been taking ice chips for her dry mouth. She reports her pain is adequately controlled. Minimal stoma output so far. NG with ongoing [id number] brownish drainage. Exam Narrative: Exam Narrative: She is alert and much more talkative and able to carry on a conversation today. Mood and affect are bright. Eyes are normal. Oropharynx with dry mucous membranes. NG tube is draining a dark brownish fluid. Neck is supple without mass or adenopathy. Respirations with diminished breath sounds but no wheezing rales or rhonchi. Cardiovascular: S1, S2, regular rate and rhythm. Abdomen: Bowel sounds active. Abdomen is soft with moderate tenderness consistent with postoperative status. Stoma site not well visualized. Extremities without edema. She moves all 4 extremities well. Const: Vital Signs, click to edit/add: Vital Signs - 24 hr 03/04/23 19:30 03/04/23 23:09 03/04/23 23:11 Temperature 98.3 F 97.6 F Pulse Rate Pulse Rate [Apical ] 79 70 Respiratory Rate 18 18 18 Blood Pressure [Le ft Arm] 110/64 118/57 L Pulse Oximetry 91 91 91 Oxygen Delivery Me thod Nasal Cannula Nasal Cannula Nasal Cannula Oxygen Flow Rate 2 2 2 03/05/23 01:58 03/05/23 07:15 03/05/23 07:30 Temperature 97.6 F Pulse Rate 89 Pulse Rate [Apical ] 80 Respiratory Rate 18 Blood Pressure [Le ft Arm] 106/63 Pulse Oximetry 90 90 Oxygen Delivery Me thod Nasal Cannula Nasal Cannula Oxygen Flow Rate 3.5 3.5 03/05/23 07:33 03/05/23 11:00 Temperature 98.3 F 98.0 F Pulse Rate Pulse Rate [Apical ] 93 79 Respiratory Rate 18 18 Blood Pressure [Le ft Arm] 126/75 138/73 Pulse Oximetry 90 90 Oxygen Delivery Me thod Nasal Cannula Nasal Cannula Oxygen Flow Rate 3.5 3.5 Documenting provider has reviewed patient's vital signs: yes Labs Labs: Laboratory Results - last 24 hr 03/05/23 03/05/23 06:48 06:56 WBC 20.81 H RBC 3.41 L Hgb 9.8 L Hct 29.8 L MCV 87 MCH 29 MCHC 33 RDW Coeff of Grace 15.0 Plt Count 385 Neut % (Auto) 88.5 H Lymph % (Auto) 5.9 L [place] % (Auto) 4.0 Eos % (Auto) 0.0 Baso % (Auto) 0.0 Neut # (Auto) 18.40 H Lymph # (Auto) 1.20 [place] # (Auto) 0.80 Eos # (Auto) 0.00 Baso # (Auto) 0.00 Sodium 141 Potassium 3.5 L Chloride 109 Carbon Dioxide 26 BUN 25 Creatinine 1.0 Estimated GFR 62 Glucose 87 Calcium 7.5 L Albumin 2.5 L Lab Acknowledgement Test Added
[2023-03-05] MEDS: LACTATED RINGERS 1000 ML 1,000 ML 150 ML IV ×3 (15:43→23:46)
--- NOTE | 2023-03-05 18:01 | PC.NURSE ---
End of shift-- Pt has been pleasant and cooperative. Alert and oriented. VSS and pt is afebrile. SPO2 maintained >90% on 3L O2 per n.c. Pt has rated pain in abdomen from 0-5 today and was given Dilaudid x2 before getting to the chair and before her dressing change. She has otherwise refused pain medication. Ice pack in place most of the day. Dressing to midline of abdomen was changed by MD and is C/D/I. Small area of wet to dry was packed at bottom of incision, covered with gauze and paper tape. Eva intact on incision. NG is patent and draining green/brown stomach contents to LIS. BS tympanic in RUQ, active in LUQ and RLQ and hypoactive in LLQ. Ostomy is patent and draining minimal amount of brown liquid. Ostomy bag was changed by Dr. Kay this afternoon. Ostomy is site is beefy red, but lies in abdominal fold. Pt is eating ice chips and denies any nausea. No flatus noted in ostomy. LS CTA. Telemetry showed NSR/sinus bradycardia and was dc'd per MD order. Hall is patent and draining adequate amounts of light luis a urine. She was up to the chair with SBA of 2 today and tolerated it well. Pt has expressed concern regarding her employment and living situation. Social work was notified and spoke with patient this afternoon to discuss possible resources. Report to oncoming shift.
--- NOTE | 2023-03-05 22:40 | PC.NURSE ---
End of Shift ([id number]): Patient pleasant and cooperative. Afebrile. 3L NC to keep O2 sats greater than 90%. PRN Dilaudid x1 for pain. NG to LIS with brown/green drainage. Denies nausea. Hall patent. Dressing to abdomen C/D/I. No gas/output noted in ostomy.
[2023-03-06] VITALS (7 sets, daily range): BP systolic 126–169; BP diastolic 60–82; PULSE 63–83; RESP 16–26; TEMP 37.1–37.4; O2SAT 88–94
[2023-03-06] MEDS: ERTAPENEM 1 GM in 0.9 % SODIUM CHLORIDE Mini-bag 100 ML IVPB (05:38)
[2023-03-06] MEDS: HYDROmorphone 0.5 mg/0.5 ml inj IVP ×6 (05:40→22:34)
--- NOTE | 2023-03-06 06:39 | NUTR.NU ---
Shift note : The abdominal dressing has been C//D/I; Ostomy site is pink and moist; No air or BM noted in the bag. The pt was denying abdominal pain throughout the night; This AM she was coughing up frequently ; coughing up scan pinkish sputum and brown sputum; Due to the cough; the requested PRN Dilaudid ; the medication was given with a good relief. Denied nausea or vomiting; bowel sounds hypoactive. The pt has been on 3L of oxygen via NC with Spo2 89-91%. NG to L nare at 67 cm LIS wall; about 40 cc of greenish abdominal substance noted in the suction canister. Hall is patent and draining about 250 cc dark luis a urine. LR has been running at 150 ml/hr Continuously. The pt was encouraged to sit in the chair this AM; the pt refused
[2023-03-06 07:02] LABS: Eosinophils Percent Auto 0.1 % (0.0-7.0); Hematocrit 28.7 % (33.0-51.0); Immature Granulocytes Pct Auto 1.4 %; Lymphocytes Percent Auto 11.5 % (20-44); Mean Corpuscular HGB Conc 31 gm/dL (32-36); Mean Corpuscular Hemoglobin 28 pg (26-34); Mean Corpuscular Volume 90 fL (80-100); Monocytes Percent Auto 3.5 % (0.0-11.0); Neutrophils Percent Auto 83.5 % (42.0-72.0); Platelet Count* 354 K/uL (140-440); RDW Coefficient of Variation % 15.3 % (11.5-15.5)
[2023-03-06 07:04] LABS: Slide Review Reflex No
[2023-03-06 07:19] LABS: Chloride* 107 mmol/L (96-114); Potassium* 3.3 mmol/L (3.6-5.1); Sodium* 141 mmol/L (135-149)
[2023-03-06 07:22] LABS: Creatinine* 0.8 mg/dL (0.5-1.5); Estimated Glomerular Filt Rate 81 ml/min
[2023-03-06 07:23] LABS: Blood Urea Nitrogen* 20 mg/dL (7-30); Calcium* 7.6 mg/dL (8.4-10.6); Carbon Dioxide* 27 mmol/L (20-32); Glucose* 75 mg/dL (60-115)
[2023-03-06 07:46] LABS: C Reactive Protein* 22.7 mg/dL (0.5-1.0)
--- NOTE | 2023-03-06 08:25 | CRLHL7_ITS ---
For Patients: As a result of the Cures Act, medical imaging exams and procedure reports are released immediately into your electronic medical record. You may view this report before your referring provider. If you have questions, please contact your health care provider. INDICATION: Shortness of breath TECHNIQUE: Chest 1 view COMPARISON: 03/04/2023 FINDINGS: Small pleural effusions are present. Bibasilar parenchymal densities. Similar pulmonary vascularity. Nasogastric tube in the stomach. There is no pneumothorax. No pneumomediastinum. IMPRESSION: Small bilateral pleural effusions with dependent atelectasis/aspiration pneumonitis. NG tube in the stomach. Dictated by Umang Waller MD @ 03/06/2023 10:13:46 AM (Electronically Signed)
--- NOTE | 2023-03-06 08:25 | CRLHL7_ITS ---
For Patients: As a result of the Century Cures Act, medical imaging exams and procedure reports are released immediately into your electronic medical record. You may view this report before your referring provider. If you have questions, please contact your health care provider. Indication: Post op, NG tube placement Technique: Abdomen 1 view. Comparison: 03/04/2023 Findings: NG tube in the stomach. Postop changes in the midline with left-sided ostomy. No dilated bowel loops. Impression: NG tube in the distal stomach. Dictated by Umang Waller MD @ 03/06/2023 10:14:39 AM (Electronically Signed)
[2023-03-06] MEDS: POTASSIUM CHLORIDE 10 MEQ/100 ML PIGGYBACK 100 MEQ IVPB ×4 (09:33→12:32)
--- NOTE | 2023-03-06 10:11 | PM.GSPN ---
Subjective Subjective Date Seen: 03/06/23 Interval history: Josselyn states that today is a little bit worse than yesterday because of ?background stressed. ? A friend of hers was able to come in and help her with some things that she needed done. Overall she has no nausea. Her pain is a little bit worse today overall. She has not been up ambulating a lot since surgery. Exam Narrative: Exam Narrative: General: No acute distress HEENT: 600 of bilious output from NG though I/O show 370 in CV: Regular rate and rhythm Respiratory: Clear bilaterally. Abdomen: Midline incision without erythema. Inferior portion of incision changed today. Stoma remains pink. Bowel sweat present in the bag. Hall in place with yellow urine. 900 mL charted overnight. She has made 150 mL of urine in the last 4 hours Const: Vital Signs, click to edit/add: Vital Signs - 24 hr 03/05/23 11:00 03/05/23 15:00 03/05/23 15:00 Temperature 98.0 F 98.2 F Pulse Rate Pulse Rate [Apical ] 79 68 Respiratory Rate 18 18 18 Blood Pressure [Le ft Arm] 138/73 145/69 H Blood Pressure [Ri ght Arm] Pulse Oximetry 90 90 90 Oxygen Delivery Me thod Nasal Cannula Nasal Cannula Nasal Cannula Oxygen Flow Rate 3.5 2 2 03/05/23 15:00 03/05/23 17:05 03/05/23 19:00 Temperature 98.4 F Pulse Rate 59 L Pulse Rate [Apical ] 59 L 77 Respiratory Rate 16 Blood Pressure [Le ft Arm] Blood Pressure [Ri ght Arm] 137/81 Pulse Oximetry 90 Oxygen Delivery Me thod Nasal Cannula Oxygen Flow Rate 3 03/05/23 23:30 03/05/23 23:30 03/05/23 23:30 Temperature 98.2 F Pulse Rate Pulse Rate [Apical ] 77 63 Respiratory Rate 16 16 16 Blood Pressure [Le ft Arm] Blood Pressure [Ri ght Arm] 134/60 Pulse Oximetry 90 90 Oxygen Delivery Me thod Nasal Cannula Nasal Cannula Oxygen Flow Rate 3 3 03/06/23 03:00 03/06/23 07:00 03/06/23 07:45 Temperature 98.8 F 99.0 F Pulse Rate Pulse Rate [Apical ] 83 72 Respiratory Rate 16 18 16 Blood Pressure [Le ft Arm] Blood Pressure [Ri ght Arm] 131/60 139/67 Pulse Oximetry 89 88 92 Oxygen Delivery Me thod Nasal Cannula Nasal Cannula Nasal Cannula Oxygen Flow Rate 3 3 3 Labs/Imaging Labs Labs: White blood cell count is down to 15 from 20. Hemoglobin is 9.0 from 9.8 Mild hypokalemia with potassium 3.3. Creatinine is 0.8 from 1.0 BUN is 20 from 25 Imaging Imaging: Chest x-ray done today: IMPRESSION: Small bilateral pleural effusions with dependent atelectasis/aspiration pneumonitis. NG tube in the stomach. Dictated by Umang Waller MD @ 03/06/2023 10:13:46 AM Abdominal x-ray done today: Impression: NG tube in the distal stomach. Dictated by Umang Waller MD @ 03/06/2023 10:14:39 AM Progress Note: A&P Assessment and plan (1) Anemia: Problem details: The drop in hemoglobin from preop to postop is likely due to fluid resuscitation. Does not appear to be having significant GI bleed. I doubt significant intraoperative bleed but will closely monitor hemoglobin. Hold VTE prophylaxis until hemoglobin stabilizes. If hemoglobin stabilizes patient should have outpatient follow-up of anemia. Status: Acute Assessment and Plan: Hemoglobin drift to 9 today however in calculating volume status, she is 3 L up overall. Will recheck hemoglobin at 6:00 p.m.. If this is stable will start Lovenox. Patient has not been ambulating much and she has at high risk for clots given surgery and smoking history. (2) Colostomy in place: Status: Acute Assessment and Plan: Colostomy pink and patent. New stoma appliance is working much better. Awaiting return of bowel function (3) History of open sigmoidectomy: Status: Acute Assessment and Plan: NG in place and NPO status, expect ileus. Continue IV antibiotics for peritonitis until normalization of white count. (4) Substance abuse: Problem details: Methamphetamine on urine tox screen Status: Acute (5) Smoking greater than 40 pack years: Problem details: Nicotine patch Status: Acute (6) Renal insufficiency: Problem details: Continue fluid resuscitation. Monitor fluid and electrolytes closely. Continue Hall catheter until reliably good urine output and better fluid management. Possible removal of Hall tomorrow. Status: Acute Assessment and Plan: This appears to have resolved. Urine output is not yet robust, however this morning is making greater than 0.5 mL/kilogram per hour. -given pleural effusions and volume status being up overall likely secondary to 3rd spacing will decrease maintenance fluids to 125 per hour. -monitor urine output today. Anticipate removing Hall catheter tomorrow. (7) Hypovolemia: Problem details: Much improved with fluid resuscitation yesterday. Continue to monitor. Continue Hall briefly for assistance with monitoring of volume status Status: Acute Assessment and Plan: Much improved, likely 3rd spacing at this point. Will decrease IV fluids slightly today. Will discuss with with hospitalist the risk benefit ratio of keeping the Hall. We will to DC however we will still have to watch her urine output closely. (8) Hypokalemia: Status: Acute Assessment and Plan: Replacement ordered per hospitalist (9) Pleural effusion: Status: Acute Assessment and Plan: Likely secondary to resuscitation. We will continue with aggressive pulmonary toilet.
[2023-03-06] MEDS: LACTATED RINGERS 1000 ML 1,000 ML 125 ML IV ×3 (10:44→21:12)
--- NOTE | 2023-03-06 11:52 | PC.NURSE ---
Discharge-- Pleasant and cooperative, alert and oriented patient was discharged to home via wheelchair with her sister. VSS and pt is afebrile. SPO2 maintained >94% on RA. She c/o pain in her right lower abdomen today which she rated as high as 7 out of 10 but appears well managed with [place] Q4H. 4x lap sites are [employer] with steri strips intact with small amount of old bloody drainage noted. Discharge education was provided including diagnosis info, symptoms to report, medications and follow up plan. All questions answered and SL was removed with tip intact.
[2023-03-06 12:12] LABS: Magnesium* 2.1 mg/dL (1.5-2.6)
--- NOTE | 2023-03-06 13:14 | PM.IMPN1 ---
Progress Note: A&P Assessment and plan (1) Anemia: Problem details: The drop in hemoglobin from preop to postop is likely due to fluid resuscitation. Does not appear to be having significant GI bleed. I doubt significant intraoperative bleed but will continue to monitor hemoglobin. Hold VTE prophylaxis until hemoglobin stabilizes. If hemoglobin stabilizes patient should have outpatient follow-up of anemia. Status: Acute (2) Colostomy in place: Problem details: Functioning well. Status: Acute (3) History of open sigmoidectomy: Problem details: Status post Exploratory laparotomy and Sigmoidectomy with Brandon's pouch and end descending colostomy, 03/04/2023. Status: Acute (4) Substance abuse: Problem details: Methamphetamine on urine tox screen Status: Acute (5) Smoking greater than 40 pack years: Problem details: Nicotine patch Status: Acute (6) Renal insufficiency: Problem details: Continue fluid resuscitation. Monitor fluid and electrolytes closely. Continue Hall catheter until reliably good urine output and better fluid management. Possible removal of Hall tomorrow. Status: Acute (7) Hypovolemia: Problem details: Improved with fluid resuscitation. Decrease IV fluid rate. Continue to monitor. Will discontinue Hall catheter today. Status: Acute (8) Hypokalemia: Problem details: Potassium supplementation IV given her NPO status. Status: Acute (9) Pleural effusion: Problem details: Mild per chest x-ray obtained today. Status: Acute Plan 1. Reviewed above impression with patient. Answered her questions. 2. Discussed with Dr. Kay. Agree with decreasing IV fluid rate and removal of Hall catheter at this time. 3. Bibasilar pulmonary atelectasis. Patient to increase activity efforts. 4. Patient agreeable with above stated plans and recommendations. Time Spent With Patient Total time spent: 45 minutes Subjective Time Seen by Provider: 08:00 Date Seen: 03/06/23 Interval history: Postop day 2. Hospital day 3. Josselyn Gutierrez is a 67 year old woman who was admitted through the emergency department with 1 day history of shortness of breath.? Patient described that she could not catch her breath.? She also noted abdominal pain with deep breath. Prior to this she was generally feeling well.? In the emergency department she was found to have free air in her abdomen on CT scan.? She was taken emergently to the operating room where she was found to have perforated sigmoid diverticulosis and peritonitis. Hall catheter is in place with minimal urine output.? Colostomy bag is in place with minimal dark red fluid in it. Fluid resuscitation has improved her urine output. She has been taking ice chips for her dry mouth. She reports her pain is adequately controlled. NG with ongoing [id number] brownish drainage. Notes some discomfort from nasogastric tube. Working toward increasing her level of physical activity. Denies nausea or vomiting. Denies dyspnea at rest, chest heaviness, pressure, tightness, or pain. Exam Narrative: Exam Narrative: Sitting up in bed with NG tube in place, nasal cannula in place, Hall catheter in place, IV fluid line in place. Appears comfortable and in no acute distress. Alert and oriented to self, place, time, situation. Friendly, articulate, cooperative. Speaks her mind. Mood and affect are congruent. Neck is supple. Lungs clear to auscultation save decreased breath sounds in the bases. Heart tones with regular rhythm, normal S1-S2. Abdomen with decreased bowel sounds, subjective discomfort without peritoneal signs. Extremities with trace edema pretibially bilaterally. Moves all 4 extremities with no focal motor neurologic deficits. Const: Vital Signs, click to edit/add: Vital Signs - 24 hr 03/05/23 15:00 03/05/23 15:00 03/05/23 15:00 Temperature 98.2 F Pulse Rate Pulse Rate [Apical ] 68 59 L Respiratory Rate 18 18 Blood Pressure [Le ft Arm] 145/69 H Blood Pressure [Ri ght Arm] Pulse Oximetry 90 90 Oxygen Delivery Me thod Nasal Cannula Nasal Cannula Oxygen Flow Rate 2 2 03/05/23 17:05 03/05/23 19:00 03/05/23 23:30 Temperature 98.4 F Pulse Rate 59 L Pulse Rate [Apical ] 77 77 Respiratory Rate 16 16 Blood Pressure [Le ft Arm] Blood Pressure [Ri ght Arm] 137/81 Pulse Oximetry 90 Oxygen Delivery Me thod Nasal Cannula Oxygen Flow Rate 3 03/05/23 23:30 03/05/23 23:30 03/06/23 03:00 Temperature 98.2 F 98.8 F Pulse Rate Pulse Rate [Apical ] 63 83 Respiratory Rate 16 16 16 Blood Pressure [Le ft Arm] Blood Pressure [Ri ght Arm] 134/60 131/60 Pulse Oximetry 90 90 89 Oxygen Delivery Me thod Nasal Cannula Nasal Cannula Nasal Cannula Oxygen Flow Rate 3 3 3 03/06/23 07:00 03/06/23 07:00 03/06/23 07:45 Temperature 99.0 F Pulse Rate Pulse Rate [Apical ] 72 72 Respiratory Rate 18 16 16 Blood Pressure [Le ft Arm] Blood Pressure [Ri ght Arm] 139/67 Pulse Oximetry 88 92 Oxygen Delivery Me thod Nasal Cannula Nasal Cannula Oxygen Flow Rate 3 3 03/06/23 11:00 Temperature 99.0 F Pulse Rate Pulse Rate [Apical ] 63 Respiratory Rate 16 Blood Pressure [Le ft Arm] 126/69 Blood Pressure [Ri ght Arm] Pulse Oximetry 94 Oxygen Delivery Me thod Nasal Cannula Oxygen Flow Rate Labs Labs: Laboratory Results - last 24 hr 03/06/23 03/06/23 06:26 08:18 WBC 15.50 H RBC 3.20 L Hgb 9.0 L Hct 28.7 L MCV 90 MCH 28 MCHC 31 L RDW Coeff of Grace 15.3 Plt Count 354 Neut % (Auto) 83.5 H Lymph % (Auto) 11.5 L [place] % (Auto) 3.5 Eos % (Auto) 0.1 Baso % (Auto) 0.0 Neut # (Auto) 12.90 H Lymph # (Auto) 1.80 [place] # (Auto) 0.50 Eos # (Auto) 0.00 Baso # (Auto) 0.00 Sodium 141 Potassium 3.3 L Chloride 107 Carbon Dioxide 27 BUN 20 Creatinine 0.8 Estimated GFR 81 Glucose 75 Calcium 7.6 L Magnesium 2.1 C-Reactive Protein 22.7 H Lab Acknowledgement Test Added
--- NOTE | 2023-03-06 15:04 | PC.NURSE ---
Went in this am to see patient as she has a new ostomy and wanted assess how receptive she would be to receiving some teaching. Patient appears to not want to discuss much. I did view her stoma. Then we discussed the importance of getting up and moving to help with her being able to pass flatus. Explain that once she is doing that then we could possibly be able to remove her NG tube and possibly start a diet. She did agree that later in the morning she would ambulate. Will continue to assess and hopefully be able to start to teach her on caring for her ostomy. Right now she won't look at it or have anything to do with it.
--- NOTE | 2023-03-06 15:11 | PC.NURSE ---
End of shift-- Cooperative, alert and oriented patient. VSS and highest temp this shift 99.0F. SPO2 maintained >89% on 3L per n.c. Pt has c/o increased pain today which she rated as high as 7 out of 10 that appears well managed with Dilaudid PRN. NG is patent and drained approximately 300ml of green/brown fluid to LIS today. Ostomy appears darker in color today and has had only small amount of serous fluid out today. Dr. Kay was notified and saw patient at bedside. BS hypoactive. She denied nausea and is tolerating small amounts of ice chips. Incision to medial abdomen is intact with ainsley. Dressing was changed by Dr. Kay today and is C/D/I. Small area of bruising was noted on right side of incision. Md is aware. LS clear but more diminished in bases today. She has also begun to have a productive cough with clear to yellowish, occasionally blood tinged sputum. Pt was encouraged to increase activity and use IS. Pt ambulated to the doorway twice and was up to the chair with assist of 1, belt and walker and tolerated it fairly well. Hall drained 250ml of light luis a urine today and was d/c'd per MD order this afternoon. Pt has not yet voided since. Report to DONA Ash.
[2023-03-06 18:08] LABS: Hemoglobin* 10.4 gm/dL (12.0-16.0); Ionized Calcium* 1.09 mmol/L (1.11-1.30)
[2023-03-06] MEDS: ENOXAPARIN 40 MG/0.4 ML INJ SUBCUT (21:11)
[2023-03-07 03:00] VITALS: BP 163/73; PULSE 67; RESP 18; TEMP 37.4; O2SAT 92
[2023-03-07] MEDS: HYDROmorphone 0.5 mg/0.5 ml inj IVP ×4 (04:05→22:47)
[2023-03-07] MEDS: ERTAPENEM 1 GM in 0.9 % SODIUM CHLORIDE Mini-bag 100 ML IVPB (05:09)
--- NOTE | 2023-03-07 06:00 | PC.NURSE ---
Shift note (): The mid abdominal dressing has been C/D/I. The ostomy stoma is moist and dark pink color; scant brown drain noted in the colostomy bag, No gas noted in the bag. The pt has been c/o 3-02/13 abdominal pain; the pain has been well managed with PRN Dilaudid and active ice. Denied nausea and vomiting. The pt urinated x2 since Hall was removed 200 +250 cc = 450 cc this shift. 1-assist with a gait belt and walker. NG to L nare at 67 cm LIS wall; about 140 cc of greenish abdominal substances noted in the suction canister. The pt has been using small ice chips. The pt was on 3L of oxygen via NC with SPo2 in the low 90s; oxygen decreased to 2L with spo2 in the low 90s. The pt reported that she has been coughing brownish sputum; she has been encouraged to use IS and deep breath and ambulate as much as she can.
[2023-03-07 06:48] LABS: Eosinophils Percent Auto 0.2 % (0.0-7.0); Hematocrit 30.1 % (33.0-51.0); Hemoglobin* 9.5 gm/dL (12.0-16.0); Immature Granulocytes Pct Auto 1.8 %; Lymphocytes Percent Auto 13.6 % (20-44); Mean Corpuscular HGB Conc 32 gm/dL (32-36); Mean Corpuscular Hemoglobin 28 pg (26-34); Mean Corpuscular Volume 90 fL (80-100); Neutrophils Percent Auto 78.4 % (42.0-72.0); Platelet Count* 379 K/uL (140-440); Red Blood Count 3.34 m/uL (4.00-5.20); White Blood Count* 12.41 K/uL (4.50-11.00)
[2023-03-07 06:55] LABS: Slide Review Reflex No
[2023-03-07 07:00] VITALS: BP 154/86; PULSE 76; RESP 20; TEMP 37.2; O2SAT 91
[2023-03-07 07:02] LABS: Chloride* 105 mmol/L (96-114); Potassium* 3.4 mmol/L (3.6-5.1); Sodium* 138 mmol/L (135-149)
[2023-03-07 07:04] LABS: Creatinine* 0.7 mg/dL (0.5-1.5); Estimated Glomerular Filt Rate 95 ml/min
[2023-03-07 07:05] LABS: Blood Urea Nitrogen* 14 mg/dL (7-30); Carbon Dioxide* 28 mmol/L (20-32); Glucose* 65 mg/dL (60-115)
[2023-03-07 07:06] LABS: Calcium* 7.8 mg/dL (8.4-10.6)
[2023-03-07 07:20] LABS: C Reactive Protein* 21.5 mg/dL (0.5-1.0)
[2023-03-07] MEDS: POTASSIUM CHLORIDE 10 MEQ/100 ML PIGGYBACK 100 MEQ IVPB ×4 (09:15→14:05)
[2023-03-07 11:00] VITALS: BP 141/91; PULSE 71; RESP 20; TEMP 36.9; O2SAT 91
--- NOTE | 2023-03-07 13:06 | PM.IMPN1 ---
Progress Note: A&P Assessment and plan (1) Anemia: Problem details: The drop in hemoglobin from preop to postop is likely due to fluid resuscitation. Hemoglobin is now stable. There is also possibly some degree chronic anemia as patient was very volume depleted on presentation. Status: Acute (2) Colostomy in place: Problem details: Awaiting return of bowel function. Status: Acute (3) History of open sigmoidectomy: Problem details: Status post Exploratory laparotomy and Sigmoidectomy with Brandon's pouch and end descending colostomy, 03/04/2023. Status: Acute (4) Substance abuse: Problem details: Methamphetamine on urine tox screen Status: Acute (5) Smoking greater than 40 pack years: Problem details: Nicotine patch Status: Acute (6) Renal insufficiency: Problem details: Resolved. Status: Acute (7) Hypovolemia: Problem details: Resolved after fluid resuscitation. Patient now likely 3rd spacing, but intravascular volume likely adequate. Status: Acute (8) Hypokalemia: Problem details: Potassium supplementation IV given her NPO status. Status: Acute (9) Pleural effusion: Problem details: Likely from fluid resuscitation and 3rd spacing Status: Acute Plan 1. Reviewed impression with patient. 2. Continue with mobilization efforts. 3. Continue with educational efforts regarding ostomy cares. 4. Continue work with General surgery 5. Reviewed results of microbiology. Stop IV vancomycin today. Continue with IV ertapenem per General surgery still. 6. Restart ertapenem when deemed feasible from general surgery perspective. Time Spent With Patient Total time spent: 35 minutes Subjective Time Seen by Provider: 09:00 Date Seen: 03/07/23 Interval history: Postop day 3. Hospital day 4. Josselyn Gutierrez is a 67 year old woman who was admitted through the emergency department with 1 day history of shortness of breath.? Patient described that she could not catch her breath.? She also noted abdominal pain with deep breath. Prior to this she was generally feeling well.? In the emergency department she was found to have free air in her abdomen on CT scan.? She was taken emergently to the operating room where she was found to have perforated sigmoid diverticulosis and peritonitis. Hall catheter is in place with minimal urine output.? Colostomy bag is in place with minimal dark red fluid in it. Fluid resuscitation has improved her urine output. She has been taking ice chips for her dry mouth. She reports her pain is adequately controlled. NG with ongoing [id number] brownish drainage. Notes some discomfort from nasogastric tube. Gradually striving toward increasing her level of physical activity. With able get up twice yesterday with assist. Denies nausea or vomiting. Denies dyspnea at rest, chest heaviness, pressure, tightness, or pain. Denies flatus or stool. Patient expresses anxiety and grief in consequence her current condition. She tells me that she receives social security and has a small part-time job. She appears that she might not be able to work on her part-time job when she is discharged from the hospital. Exam Narrative: Exam Narrative: Appears comfortable in recliner at bedside. No acute distress. Vision and hearing are grossly normal. NG tube attached to intermittent suctioning. Dentition in poor repair. Articulate, comfortable. Mood is anxious. Alert, oriented to self, place, time, situation. Neck is supple. Midline trachea. Lungs are clear to auscultation. Heart tones with regular rhythm. I can hear bowel sounds today. Moves all 4 extremities. Const: Vital Signs, click to edit/add: Vital Signs - 24 hr 03/06/23 15:00 03/06/23 15:00 03/06/23 15:00 Temperature 98.8 F Pulse Rate [Apical ] 63 81 Respiratory Rate 26 H 26 H 26 H Blood Pressure [Ri ght Arm] 169/81 H Pulse Oximetry 90 90 Oxygen Delivery Me thod Room Air Room Air Oxygen Flow Rate 03/06/23 19:30 03/06/23 23:00 03/06/23 23:00 Temperature 99.4 F Pulse Rate [Apical ] 67 67 Respiratory Rate 18 18 18 Blood Pressure [Ri ght Arm] 149/82 H Pulse Oximetry 92 92 Oxygen Delivery Me thod Room Air Room Air Oxygen Flow Rate 3 3 03/06/23 23:00 03/07/23 03:00 03/07/23 07:00 Temperature 99.3 F 99.4 F Pulse Rate [Apical ] 71 67 76 Respiratory Rate 18 18 20 Blood Pressure [Ri ght Arm] 151/74 H 163/73 H Pulse Oximetry 92 92 Oxygen Delivery Me thod Room Air Room Air Oxygen Flow Rate 3 2 03/07/23 07:00 03/07/23 07:00 Temperature 98.9 F Pulse Rate [Apical ] 76 Respiratory Rate 20 20 Blood Pressure [Ri ght Arm] 154/86 H Pulse Oximetry 91 91 Oxygen Delivery Me thod Nasal Cannula Nasal Cannula Oxygen Flow Rate 2 2 Labs Labs: Laboratory Results - last 24 hr 03/06/23 03/07/23 18:03 06:12 WBC 12.41 H RBC 3.34 L Hgb 10.4 L 9.5 L Hct 30.1 L MCV 90 MCH 28 MCHC 32 RDW Coeff of Grace 15.0 Plt Count 379 Neut % (Auto) 78.4 H Lymph % (Auto) 13.6 L [place] % (Auto) 6.0 Eos % (Auto) 0.2 Baso % (Auto) 0.0 Neut # (Auto) 9.70 H Lymph # (Auto) 1.70 [place] # (Auto) 0.70 Eos # (Auto) 0.00 Baso # (Auto) 0.00 Sodium 138 Potassium 3.4 L Chloride 105 Carbon Dioxide 28 BUN 14 Creatinine 0.7 Estimated GFR 95 Glucose 65 Calcium 7.8 L Ionized Calcium Per 1.09 L C-Reactive Protein 21.5 H
--- NOTE | 2023-03-07 13:10 | P.GSPN_ITS ---
Subjective Subjective Date Seen: 03/07/23 Interval history: Josselyn feels better today. She was up walking. Her urine output has started to increase. She had a small amount of stool come out of her stoma today. Exam Narrative: Exam Narrative: General: No acute distress Respiratory: Breath sounds are clear in the upper lobes. CV: Regular rate and rhythm Abdomen: Staple line is clean without erythema. Inferior incision was repacked. Stoma is pink and patent. There is a small amount of solid stool in the stoma bag. Extremities: Hands and feet are edematous bilaterally Urine output was 700 in the past 24 hours, though patient has had un measured voids today. Patient took in 400 oral and had 500 from her NG. Weight is up 2 kg Const: Vital Signs, click to edit/add: Vital Signs - 24 hr 03/06/23 15:00 03/06/23 15:00 03/06/23 15:00 Temperature 98.8 F Pulse Rate [Apical ] 63 81 Respiratory Rate 26 H 26 H 26 H Blood Pressure [Ri ght Arm] 169/81 H Pulse Oximetry 90 90 Oxygen Delivery Me thod Room Air Room Air Oxygen Flow Rate 03/06/23 19:30 03/06/23 23:00 03/06/23 23:00 Temperature 99.4 F Pulse Rate [Apical ] 67 67 Respiratory Rate 18 18 18 Blood Pressure [Ri ght Arm] 149/82 H Pulse Oximetry 92 92 Oxygen Delivery Me thod Room Air Room Air Oxygen Flow Rate 3 3 03/06/23 23:00 03/07/23 03:00 03/07/23 07:00 Temperature 99.3 F 99.4 F Pulse Rate [Apical ] 71 67 76 Respiratory Rate 18 18 20 Blood Pressure [Ri ght Arm] 151/74 H 163/73 H Pulse Oximetry 92 92 Oxygen Delivery Me thod Room Air Room Air Oxygen Flow Rate 3 2 03/07/23 07:00 03/07/23 07:00 Temperature 98.9 F Pulse Rate [Apical ] 76 Respiratory Rate 20 20 Blood Pressure [Ri ght Arm] 154/86 H Pulse Oximetry 91 91 Oxygen Delivery Me thod Nasal Cannula Nasal Cannula Oxygen Flow Rate 2 2 Labs/Imaging Labs Labs: White blood cell count is down slightly to 12 today from 15 yesterday Hemoglobin is stable at 9.5 CRP is down slightly to 21 from 22. Mild hypokalemia with potassium of 3.4 BUN and creatinine and have further normalized. Blood cultures from 03/04/2023 showed Staph hominis in 1 bottle. Progress Note: A&P Assessment and plan (1) Pleural effusion: Problem details: Likely from fluid resuscitation and 3rd spacing Status: Acute Assessment and Plan: - continue aggressive pulmonary toilet. If oxygen needs increase will repeat chest x-ray and consider diuresis (2) Hypokalemia: Problem details: Potassium supplementation IV given her NPO status. Status: Acute (3) Bacteremia: Problem details: Staph hominis grown in 1 of 2 bottles, likely a contaminant. Vancomycin stopped today. Status: Acute (4) Anemia: Problem details: The drop in hemoglobin from preop to postop is likely due to fluid resuscitation. Hemoglobin is now stable. There is also possibly some degree chronic anemia as patient was very volume depleted on presentation. Status: Acute (5) Hypovolemia: Problem details: Resolved after fluid resuscitation. Patient now likely 3rd spacing, but int ravascular volume likely adequate. Status: Acute Assessment and Plan: As patient appears to be beginning to auto diurese, will decrease maintenance fluids to 75 mL/hour (6) Colostomy in place: Problem details: Awaiting return of bowel function. Status: Acute Assessment and Plan: Have attempted stoma teaching, however patient is somewhat resistant to this. We will continue to work on Education. (7) History of open sigmoidectomy: Problem details: Status post Exploratory laparotomy and Sigmoidectomy with Brandon's pouch and end descending colostomy, 03/04/2023. Status: Acute Assessment and Plan: - she is beginning to have return of bowel function. Abdomen is mildly protuberant however soft. Bowel sounds are present. Will DC NG today. Patient should remain on sips and chips only. I encouraged her to go very slowly with oral intake. - continue ertapenem for peritonitis until white blood cell count normalizes, then will transition to oral and continue antibiotics for 7-10 days (8) Substance abuse: Problem details: Methamphetamine on urine tox screen Status: Acute (9) Smoking greater than 40 pack years: Problem details: Nicotine patch Status: Acute (10) Renal insufficiency: Problem details: Resolved. Status: Acute Assessment and Plan: Continue to monitor urine output.
[2023-03-07] MEDS: LACTATED RINGERS 1000 ML 1,000 ML 75 ML IV (13:44)
[2023-03-07 15:00] VITALS: BP 175/80; PULSE 72; PULSE 76; RESP 18; RESP 20; TEMP 37; O2SAT 91; O2SAT 93
--- NOTE | 2023-03-07 18:34 | PC.NURSE ---
Shift Note: Pt up to ambulate x2 to end of CCU hallway and back, approx 100ft. BP's slightly hypertensive, VS otherwise WNL. Afebrile. Small solid stool passed through ostomy as well as 50cc brownish/bloody liquid discharge. Pain 4-5/10, PRN dilaudid given. Potassium IVPB x4. Pt diligent with IS and aerobika use, c/o thick mucous. She is expectorating small amounts and requested a small cup of coffee this evening. Advanced to NPO with sips/chips, coffee ok per Dr. Kay. Abdominal wound well approximated, dressing changed and C,D,&I. Positive discussion regarding living with an ostomy. Verbal teaching with freelance writer and DONA Holly. Pt watched several [place] teaching videos at bedside on [facility] laptop.
[2023-03-07 19:00] VITALS: BP 168/81; PULSE 83; RESP 18; TEMP 37.1; O2SAT 93
[2023-03-07] MEDS: ENOXAPARIN 40 MG/0.4 ML INJ SUBCUT (22:07)
[2023-03-07 23:00] VITALS: PULSE 67; PULSE 83; RESP 18; TEMP 36.6; O2SAT 94
[2023-03-08 03:00] VITALS: BP 155/91; PULSE 84; RESP 18; TEMP 37.6; O2SAT 95
[2023-03-08] MEDS: HYDROmorphone 0.5 mg/0.5 ml inj IVP (03:13)
[2023-03-08] MEDS: LACTATED RINGERS 1000 ML 1,000 ML 75 ML IV ×2 (05:30→15:24)
[2023-03-08] MEDS: ERTAPENEM 1 GM in 0.9 % SODIUM CHLORIDE Mini-bag 100 ML IVPB (05:30)
[2023-03-08 06:17] LABS: Basophils Percent Auto 0.1 % (0.0-3.0); Eosinophils Percent Auto 0.5 % (0.0-7.0); Hematocrit 32.5 % (33.0-51.0); Hemoglobin* 10.5 gm/dL (12.0-16.0); Immature Granulocytes Pct Auto 3.9 %; Lymphocytes Percent Auto 12.2 % (20-44); Mean Corpuscular HGB Conc 32 gm/dL (32-36); Mean Corpuscular Hemoglobin 29 pg (26-34); Mean Corpuscular Volume 89 fL (80-100); Monocytes Percent Auto 6.6 % (0.0-11.0); Neutrophils Percent Auto 76.7 % (42.0-72.0); Platelet Count* 409 K/uL (140-440); RDW Coefficient of Variation % 14.7 % (11.5-15.5); Red Blood Count 3.67 m/uL (4.00-5.20); White Blood Count* 15.28 K/uL (4.50-11.00)
[2023-03-08 06:24] LABS: Chloride* 102 mmol/L (96-114); Potassium* 3.5 mmol/L (3.6-5.1); Slide Review Reflex No; Sodium* 136 mmol/L (135-149)
[2023-03-08 06:27] LABS: Blood Urea Nitrogen* 11 mg/dL (7-30); Carbon Dioxide* 27 mmol/L (20-32); Creatinine* 0.6 mg/dL (0.5-1.5); Estimated Glomerular Filt Rate 98 ml/min
[2023-03-08 06:28] LABS: Glucose* 63 mg/dL (60-115)
--- NOTE | 2023-03-08 06:50 | PC.NURSE ---
Shift note: Surgical dressing is C/D/I, surrounding skin and skin around stoma is intact and pink. Minimal discharge brown liquid in stoma over night. Bowel sounds hypoactive. Pt tolerating PO ice ships with no c/o nausea. Pain 4/10 treated per eMAR per pt request with relief to 1-2/10. She ambulates to the BR with SBA and walker
[2023-03-08 06:53] LABS: C Reactive Protein* 22.9 mg/dL (0.5-1.0)
[2023-03-08 07:00] VITALS: BP 156/86; PULSE 78; RESP 18; TEMP 36.4; O2SAT 94
[2023-03-08] MEDS: HYDROCODONE-ACETAMIN 5-325 MG 1 TAB PO ×2 (10:44→18:31)
[2023-03-08 11:00] VITALS: BP 159/86; PULSE 75; RESP 16; TEMP 36.7; O2SAT 95
--- NOTE | 2023-03-08 13:39 | P.GSPN_ITS ---
Subjective Subjective Date Seen: 03/08/23 Interval history: Josselyn seems to be doing better every day. She did have 1 low-grade fever overnight to 99.4. She is weaning down off of oxygen and is currently on room air. Pain is controlled. She is learning her stoma cares. She has been up ambulating. She denies nausea. She has begun to have stoma output. Exam Narrative: Exam Narrative: General: No acute distress CV: Regular rate and rhythm Respiratory: Breathing is nonlabored on room air. Patient does have a slightly more pronounced cough today Abdomen: Mildly protuberant. Minimally tender. Incision is clean and dry without erythema. Packing changed today. Stoma with stool in the bag. Extremities: Mildly edematous in hands and feet. Const: Vital Signs, click to edit/add: Vital Signs - 24 hr 03/07/23 15:00 03/07/23 15:00 03/07/23 15:00 Temperature 98.6 F Pulse Rate [Apical ] 76 72 Pulse Rate [Pulse Oximeter] Respiratory Rate 20 20 18 Blood Pressure [Le ft Arm] Blood Pressure [Ri ght Arm] 175/80 H Pulse Oximetry 91 93 Oxygen Delivery Me thod Nasal Cannula Room Air Oxygen Flow Rate 1 03/07/23 19:00 03/07/23 23:00 03/07/23 23:00 Temperature 98.7 F Pulse Rate [Apical ] 83 83 Pulse Rate [Pulse Oximeter] Respiratory Rate 18 18 Blood Pressure [Le ft Arm] 168/81 H Blood Pressure [Ri ght Arm] Pulse Oximetry 93 94 Oxygen Delivery Me thod Room Air Nasal Cannula Oxygen Flow Rate 1 1 03/07/23 23:00 03/08/23 03:00 03/08/23 07:00 Temperature 98 F 99.7 F H Pulse Rate [Apical ] 67 Pulse Rate [Pulse Oximeter] 84 78 Respiratory Rate 18 18 18 Blood Pressure [Le ft Arm] Blood Pressure [Ri ght Arm] 155/91 H Pulse Oximetry 94 95 Oxygen Delivery Me thod Nasal Cannula Nasal Cannula Oxygen Flow Rate 1 1 03/08/23 07:00 03/08/23 07:00 03/08/23 11:00 Temperature 97.6 F 98.0 F Pulse Rate [Apical ] Pulse Rate [Pulse Oximeter] 78 75 Respiratory Rate 18 18 16 Blood Pressure [Le ft Arm] Blood Pressure [Ri ght Arm] 156/86 H 159/86 H Pulse Oximetry 94 94 95 Oxygen Delivery Me thod Room Air Room Air Room Air Oxygen Flow Rate Labs/Imaging Labs Labs: White blood cell count and CRP are both up slightly today. Progress Note: A&P Assessment and plan (1) Pleural effusion: Problem details: Likely from fluid resuscitation and 3rd spacing Status: Acute Assessment and Plan: Oxygen requirements going down. Patient is doing aerobika and working on pulmonary toilet. (2) Anemia: Problem details: The drop in hemoglobin from preop to postop is likely due to fluid resuscitation. Hemoglobin is now stable. There is also possibly some degree ch ronic anemia as patient was very volume depleted on presentation. Status: Acute Assessment and Plan: Hemoglobin remained stable. (3) Colostomy in place: Problem details: Beginning to have return of bowel function. Status: Acute Assessment and Plan: Continue stoma teaching. (4) History of open sigmoidectomy: Problem details: Status post Exploratory laparotomy and Sigmoidectomy with Brandon's pouch and end descending colostomy, 03/04/2023. Status: Acute Assessment and Plan: Bowel function beginning to return. Have advanced diet to clears today. Patient knows to go slowly. RN to perform packing changes to lower abdominal wound. (5) Smoking greater than 40 pack years: Problem details: Nicotine patch Status: Acute (6) Perforation of sigmoid colon due to diverticulitis: Problem details: Status post surgery with colostomy. Surgery to manage stoma and surgical incisions and NG tube. Anticipate problems with volume status and 3rd spacing of fluid in the abdomen. Anticipate postoperative ileus. Continue antibiotics for peritonitis. Status: Acute Assessment and Plan: Continue IV antibiotics given low-grade fevers and elevated CRP/white count. If this persists or worsens would repeat infectious workup including chest x-ray Plan -Lovenox for DVT prophylaxis -anticipate at least 2 more days as inpatient. We will work on discharge planning for patient. Social work consult
[2023-03-08 15:00] VITALS: BP 144/84; PULSE 75; PULSE 82; RESP 16; TEMP 36.6; O2SAT 92; O2SAT 95
--- NOTE | 2023-03-08 15:14 | P.IMPN_ITS ---
Progress Note: A&P Assessment and plan (1) Pleural effusion: Problem details: Likely from fluid resuscitation and 3rd spacing. Not requiring oxygen supplementation. Status: Acute (2) Anemia: Problem details: The drop in hemoglobin from preop to postop is likely due to fluid resuscitation. Hemoglobin is now stable. There is also possibly some degree chronic anemia as patient was very volume depleted on presentation. Status: Acute (3) Colostomy in place: Problem details: Beginning to have return of bowel function. Status: Acute (4) History of open sigmoidectomy: Problem details: Status post Exploratory laparotomy and Sigmoidectomy with Brandon's pouch and end descending colostomy, 03/04/2023. Status: Acute (5) Smoking greater than 40 pack years: Problem details: Nicotine patch. Suspect has COPD. Status: Acute (6) Perforation of sigmoid colon due to diverticulitis: Problem details: Status post surgery with colostomy. Surgery to manage stoma and surgical incisions. Anticipate problems with volume status and 3rd spacing of fluid in the abdomen. Postoperative ileus. Continue antibiotics for peritonitis. Status: Acute Plan 1. Reviewed impression with patient 2. Continue with mobilization efforts of patient 3. Otherwise continue with interventions as specified above. 4. Patient agreeable with above stated plans and recommendations Time Spent With Patient Total time spent: 30 minutes Subjective Time Seen by Provider: 08:00 Date Seen: 03/08/23 Interval history: Postop day 4. Hospital day 5. Josselyn Gutierrez is a 67 year old woman who was admitted through the emergency department with 1 day history of shortness of breath.? Patient described that she could not catch her breath.? She also noted abdominal pain with deep breath. Prior to this she was generally feeling well.? In the emergency department she was found to have free air in her abdomen on CT scan.? She was taken emergently to the operating room where she was found to have perforated sigmoid diverticulosis and peritonitis. Hall catheter was in place but has since been removed.? Colostomy bag is in place with some output. She has been tolerating ice chips without nausea vomiting. She reports her pain is only slightly improving but for the most part adequately controlled. NG tube has been removed. Better able to clear out her throat since NG tube removed. Exam Narrative: Exam Narrative: T-max 99.7? F. Appears comfortable when laying still. Grimaces when she coughs or tries to move. Alert, oriented to self, place, time, situation. Articulate, friendly, cooperative. A little less anxious. Vision and hearing are grossly normal. Lungs clear to auscultation without wheezing, rhonchi, rales. Not able to take deep breaths. Does have prolonged expiratory phase. Heart tones with regular rhythm, normal S1-S2. No obvious murmur, gallop, or rub. Abdomen with active bowel sounds, soft. Able to transfer and ambulate independently with a fair amount of antalgia. Const: Vital Signs, click to edit/add: Vital Signs - 24 hr 03/07/23 19:00 03/07/23 23:00 03/07/23 23:00 Temperature 98.7 F Pulse Rate [Apical ] 83 83 Pulse Rate [Pulse Oximeter] Respiratory Rate 18 18 Blood Pressure [Le ft Arm] 168/81 H Blood Pressure [Ri ght Arm] Pulse Oximetry 93 94 Oxygen Delivery Me thod Room Air Nasal Cannula Oxygen Flow Rate 1 1 03/07/23 23:00 03/08/23 03:00 03/08/23 07:00 Temperature 98 F 99.7 F H Pulse Rate [Apical ] 67 Pulse Rate [Pulse Oximeter] 84 78 Respiratory Rate 18 18 18 Blood Pressure [Le ft Arm] Blood Pressure [Ri ght Arm] 155/91 H Pulse Oximetry 94 95 Oxygen Delivery Me thod Nasal Cannula Nasal Cannula Oxygen Flow Rate 1 1 03/08/23 07:00 03/08/23 07:00 03/08/23 11:00 Temperature 97.6 F 98.0 F Pulse Rate [Apical ] Pulse Rate [Pulse Oximeter] 78 75 Respiratory Rate 18 18 16 Blood Pressure [Le ft Arm] Blood Pressure [Ri ght Arm] 156/86 H 159/86 H Pulse Oximetry 94 94 95 Oxygen Delivery Me thod Room Air Room Air Room Air Oxygen Flow Rate Documenting provider has reviewed patient's vital signs: yes Labs Labs: Laboratory Results - last 24 hr 03/08/23 05:25 WBC 15.28 H RBC 3.67 L Hgb 10.5 L Hct 32.5 L MCV 89 MCH 29 MCHC 32 RDW Coeff of Grace 14.7 Plt Count 409 Neut % (Auto) 76.7 H Lymph % (Auto) 12.2 L [place] % (Auto) 6.6 Eos % (Auto) 0.5 Baso % (Auto) 0.1 Neut # (Auto) 11.70 H Lymph # (Auto) 1.90 [place] # (Auto) 1.00 H Eos # (Auto) 0.10 Baso # (Auto) 0.00 Sodium 136 Potassium 3.5 L Chloride 102 Carbon Dioxide 27 BUN 11 Creatinine 0.6 Estimated GFR 98 Glucose 63 Calcium 8.0 L C-Reactive Protein 22.9 H
[2023-03-08 19:00] VITALS: BP 151/81; PULSE 75; RESP 16; TEMP 37; O2SAT 94
--- NOTE | 2023-03-08 19:32 | PC.NURSE ---
ostomy care: Patient ostomy leaking into incison. Incision cleansed and new ostomy appliance placed.
[2023-03-08] MEDS: ENOXAPARIN 40 MG/0.4 ML INJ SUBCUT (21:51)
[2023-03-08 23:00] VITALS: BP 158/84; PULSE 62; RESP 16; TEMP 36.6; O2SAT 92
[2023-03-09] VITALS (8 sets, daily range): BP systolic 109–160; BP diastolic 64–86; PULSE 69–92; RESP 16–18; TEMP 36.6–37.2; O2SAT 86–96
[2023-03-09] MEDS: LACTATED RINGERS 1000 ML 1,000 ML 75 ML IV (05:23)
[2023-03-09] MEDS: ERTAPENEM 1 GM in 0.9 % SODIUM CHLORIDE Mini-bag 100 ML IVPB (05:23)
--- NOTE | 2023-03-09 05:49 | PC.NURSE ---
Shift note: Pt tolerated clear liquid diet well without any abd pain, n/v, or heart carbajal. SBA with walker, ambulated to and from the BR. Pain level has been rated about 3 and managed with icepack. Pt is not motivated to learn about how to care for the ostomy including application and emptying of bag. Alert and oriented. Systolic Bp has been high above 140 at 3 different occasion. O2>90% on room.
[2023-03-09 07:43] LABS: Basophils Percent Auto 0.1 % (0.0-3.0); Eosinophils Percent Auto 0.6 % (0.0-7.0); Hematocrit 34.6 % (33.0-51.0); Immature Granulocytes Pct Auto 3.9 %; Lymphocytes Percent Auto 11.6 % (20-44); Mean Corpuscular HGB Conc 32 gm/dL (32-36); Mean Corpuscular Hemoglobin 28 pg (26-34); Mean Corpuscular Volume 89 fL (80-100); Neutrophils Percent Auto 74.8 % (42.0-72.0); Platelet Count* 409 K/uL (140-440); Red Blood Count 3.91 m/uL (4.00-5.20); White Blood Count* 14.18 K/uL (4.50-11.00)
[2023-03-09] MEDS: HYDROCODONE-ACETAMIN 5-325 MG 1 TAB PO ×3 (07:43→17:51)
[2023-03-09 07:50] LABS: Slide Review Reflex No
[2023-03-09 07:57] LABS: Chloride* 104 mmol/L (96-114); Potassium* 3.4 mmol/L (3.6-5.1); Sodium* 139 mmol/L (135-149)
[2023-03-09 08:00] LABS: Blood Urea Nitrogen* 10 mg/dL (7-30); Carbon Dioxide* 26 mmol/L (20-32); Creatinine* 0.5 mg/dL (0.5-1.5); Estimated Glomerular Filt Rate 103 ml/min; Glucose* 65 mg/dL (60-115)
[2023-03-09] MEDS: POTASSIUM BICARB 25 MEQ EFFERVESCENT TAB 50 MEQ PO (09:53)
[2023-03-09] MEDS: IPRAT-ALBUT 0.5-2.5 MG/3 ML NEB 1 NEB IH ×4 (09:53→21:54)
--- NOTE | 2023-03-09 09:58 | PM.IMPN1 ---
Progress Note: A&P Assessment and plan (1) Pleural effusion: Problem details: Likely from fluid resuscitation and 3rd spacing. Not requiring oxygen supplementation. Status: Acute (2) Anemia: Problem details: The drop in hemoglobin from preop to postop is likely due to fluid resuscitation. Hemoglobin is now stable. There is also possibly some degree chronic anemia as patient was very volume depleted on presentation. Status: Acute (3) Colostomy in place: Problem details: Beginning to have return of bowel function. Status: Acute (4) History of open sigmoidectomy: Problem details: Status post Exploratory laparotomy and Sigmoidectomy with Brandon's pouch and end descending colostomy, 03/04/2023. Status: Acute (5) Smoking greater than 40 pack years: Problem details: Nicotine patch. Suspect has COPD. Status: Acute (6) Perforation of sigmoid colon due to diverticulitis: Problem details: Status post surgery with colostomy. Surgery to manage stoma and surgical incisions. Anticipate problems with volume status and 3rd spacing of fluid in the abdomen. Postoperative ileus. Continue antibiotics for peritonitis. Status: Acute (7) Chronic obstructive pulmonary disease: Problem details: Add DuoNeb today. Continue with other pulmonary hygiene efforts. Continue with efforts to mobilize and ambulate. Status: Acute (8) Hypokalemia: Problem details: Potassium supplementation orally and monitor potassium. Status: Acute Plan 1. Reviewed impression with patient 2. Will continue to follow with General surgery. 3. Support her efforts to address her personal financial concerns. 4. Continue to work toward her caring for herself independently once again. Time Spent With Patient Total time spent: 30 minutes Subjective Time Seen by Provider: 09:00 Date Seen: 03/09/23 Interval history: Postop day 5. Hospital day 6. Josselyn Gutierrez is a 67 year old woman who was admitted through the emergency department with 1 day history of shortness of breath.? Patient described that she could not catch her breath.? She also noted abdominal pain with deep breath. Prior to this she was generally feeling well.? In the emergency department she was found to have free air in her abdomen on CT scan.? She was taken emergently to the operating room where she was found to have perforated sigmoid diverticulosis and peritonitis. Hall catheter was in place but has since been removed.? Colostomy bag is in place with some output. She has been tolerating ice chips without nausea vomiting. She reports her pain is improving and for the most part adequately controlled. NG tube has been removed. Better able to clear out her throat since NG tube removed, but still has a sense that she can not clear her throat adequately despite Aerobika use, ambulation efforts, and bedside incentive spirometry use. She quit tobacco cold turkey on date of admission to the hospital. She has smoked roughly 1 ppd since 17 years old - about a 50 pyh. She declines nicotine patch or any other nicotine products to help with physical addiction and states she has no desire to smooke at this time. Exam Narrative: Exam Narrative: Appears comfortable, in no acute distress. Vision and hearing are grossly normal. Alert, oriented to self, place, time, situation. Articulate and cooperative. Mood and affect are congruent. Poor dentition. Lungs with some prolonged expiratory phase with mild end inspiratory wheezing. Hyperinflated lungs. Heart tones with regular rhythm, normal S1-S2. Abdomen now has active bowel sounds. Able to move, transfer, ambulate, slowly and with antalgia. Const: Vital Signs, click to edit/add: Vital Signs - 24 hr 03/08/23 11:00 03/08/23 15:00 03/08/23 15:00 Temperature 98.0 F Pulse Rate [Pulse Oximeter] 75 75 Respiratory Rate 16 16 16 Blood Pressure [Ri ght Arm] 159/86 H Pulse Oximetry 95 95 Oxygen Delivery Me thod Room Air Room Air 03/08/23 15:00 03/08/23 19:00 03/08/23 23:00 Temperature 97.9 F 98.6 F Pulse Rate [Pulse Oximeter] 82 75 Respiratory Rate 16 16 16 Blood Pressure [Ri ght Arm] 144/84 H 151/81 H Pulse Oximetry 92 94 Oxygen Delivery Me thod Room Air Room Air 03/08/23 23:00 03/08/23 23:00 03/09/23 03:00 Temperature 97.9 F 98.1 F Pulse Rate [Pulse Oximeter] 62 69 Respiratory Rate 16 16 16 Blood Pressure [Ri ght Arm] 158/84 H 145/68 H Pulse Oximetry 92 92 93 Oxygen Delivery Me thod Room Air Room Air Room Air Documenting provider has reviewed patient's vital signs: yes Labs Labs: Laboratory Results - last 24 hr 03/09/23 07:30 WBC 14.18 H RBC 3.91 L Hgb 11.0 L Hct 34.6 MCV 89 MCH 28 MCHC 32 RDW Coeff of Grace 15.0 Plt Count 409 Neut % (Auto) 74.8 H Lymph % (Auto) 11.6 L [place] % (Auto) 9.0 Eos % (Auto) 0.6 Baso % (Auto) 0.1 Neut # (Auto) 10.60 H Lymph # (Auto) 1.60 [place] # (Auto) 1.30 H Eos # (Auto) 0.10 Baso # (Auto) 0.00 Sodium 139 Potassium 3.4 L Chloride 104 Carbon Dioxide 26 BUN 10 Creatinine 0.5 Estimated GFR 103 Glucose 65 Calcium 8.0 L
--- NOTE | 2023-03-09 10:37 | PM.GSPN ---
Subjective Subjective Date Seen: 03/09/23 Interval history: Overall Josselyn is doing better. Seems to be in better spirits. She states that the chicken broth did not sit well with her because it was salty however she has tolerated clears without nausea. She has had 3 L of urine output in the last 24 hours. She is afebrile and has been off of oxygen for 24 hours. Exam Narrative: Exam Narrative: General: No acute distress Respiratory: Clear to auscultation bilaterally CV: Regular rate and rhythm Abdomen: Much softer today. Incision without erythema. Good stoma output. Extremities: Still with mild edema. Const: Vital Signs, click to edit/add: Vital Signs - 24 hr 03/08/23 11:00 03/08/23 15:00 03/08/23 15:00 Temperature 98.0 F Pulse Rate [Pulse Oximeter] 75 75 Respiratory Rate 16 16 16 Blood Pressure [Le ft Arm] Blood Pressure [Ri ght Arm] 159/86 H Pulse Oximetry 95 95 Oxygen Delivery Me thod Room Air Room Air 03/08/23 15:00 03/08/23 19:00 03/08/23 23:00 Temperature 97.9 F 98.6 F Pulse Rate [Pulse Oximeter] 82 75 Respiratory Rate 16 16 16 Blood Pressure [Le ft Arm] Blood Pressure [Ri ght Arm] 144/84 H 151/81 H Pulse Oximetry 92 94 Oxygen Delivery Me thod Room Air Room Air 03/08/23 23:00 03/08/23 23:00 03/09/23 03:00 Temperature 97.9 F 98.1 F Pulse Rate [Pulse Oximeter] 62 69 Respiratory Rate 16 16 16 Blood Pressure [Le ft Arm] Blood Pressure [Ri ght Arm] 158/84 H 145/68 H Pulse Oximetry 92 92 93 Oxygen Delivery Me thod Room Air Room Air Room Air 03/09/23 08:00 03/09/23 08:00 03/09/23 08:00 Temperature 98.9 F Pulse Rate [Pulse Oximeter] 73 73 Respiratory Rate 16 16 Blood Pressure [Le ft Arm] 160/86 H Blood Pressure [Ri ght Arm] Pulse Oximetry 94 94 Oxygen Delivery Me thod Room Air Room Air Labs/Imaging Labs Labs: White blood cell count is down slightly. Remains mildly hypokalemic. Progress Note: A&P Assessment and plan (1) Chronic obstructive pulmonary disease: Problem details: Add DuoNeb today. Continue with other pulmonary hygiene efforts. Continue with efforts to mobilize and ambulate. Status: Acute (2) Pleural effusion: Problem details: Likely from fluid resuscitation and 3rd spacing. Not requiring oxygen supplementation. Status: Acute (3) Hypokalemia: Problem details: Potassium supplementation orally and monitor potassium. Status: Acute (4) Anemia: Problem details: The drop in hemoglobin from preop to postop is likely due to fluid resuscitation. Hemoglobin is now stable. There is also possibly some degree chronic anemia as patient was very volume depleted on presentation. Status: Acute (5) Colostomy in place: Problem details: Bowel function has returned. Diet advanced to soft diet today. Status: Acute (6) History of open sigmoidectomy: Problem details: Status post Exploratory laparotomy and Sigmoidectomy with Brandon's pouch and end descending colostomy, 03/04/2023. Status: Acute Assessment and Plan: - continue IV antibiotics until white count normalizes. If it improves tomorrow can consider switching to p.o.. -continue daily dressing changes to lower incisional wound (7) Substance abuse: Problem details: Methamphetamine on urine tox screen Status: Acute (8) Smoking greater than 40 pack years: Problem details: Nicotine patch. Suspect has COPD. Status: Acute Plan 1) continue Lovenox for DVT prophylaxis 2) patient is interested in discharging home, I have ordered PT and OT to work with her which she is amenable to. I think she would do well at home, however she does have 3 flights of stairs to climb. 3) will have social work help arrange home health if possible. 4) anticipate discharge.
--- NOTE | 2023-03-09 18:42 | PC.NURSE ---
PATIENT'S VSS AND AFEBRILE. BOWEL SOUNDS ACTIVE AND PASSING GAS INTO COLOSTOMY POUCH. PRODUCING BROWN, SOFT FORMED STOOL IN POUCH. DENIES N/V. TOLERATING SMALL AMOUNTS OF REGULAR DIET. PATIENT ENCOURAGED TO USE INCENTIVE SPIROMETER AND AEROBIKA. REPORTS PRODUCTIVE COUGH WITH THICK SPUTUM. STARTED DUONEBS TODAY. SOB WITH EXERTION. UP WITH SBA, CANE AND GAIT BELT. UNSTEADY AT TIMES WITH AMBULATION BUT DENIES FEELING DIZZY OR LIGHTHEADED. COOPERATIVE BUT CONTINUES TO BE MINIMALLY INVOLVED WITH COLOSTOMY CARE. TEARFUL AT TIMES AND EXPRESSING CONCERN WITH CARING FOR SELF AT HOME AND FINANCIAL CONCERNS.
[2023-03-09] MEDS: ENOXAPARIN 40 MG/0.4 ML INJ SUBCUT (21:53)
[2023-03-10] VITALS (8 sets, daily range): BP systolic 118–135; BP diastolic 54–91; PULSE 83–101; RESP 14–22; TEMP 36.6–37.3; O2SAT 90–96
[2023-03-10] MEDS: ERTAPENEM 1 GM in 0.9 % SODIUM CHLORIDE Mini-bag 100 ML IVPB (05:16)
--- NOTE | 2023-03-10 07:02 | PC.NURSE ---
End of shift: Pt A&O. VSS on RA w/ sats >90%. Denies pain. Denies n/v. Tolerating diet.?Ostomy producing small amounts of soft brown stool. Bowel sounds active. Pt is Afebrile A1 to bathroom. Encouraged to walk in [place], but pt declined. Pt expressed concern about her financial and living situation upon discharge. ?
[2023-03-10 07:22] LABS: Basophils Percent Auto 0.3 % (0.0-3.0); Eosinophils Percent Auto 0.3 % (0.0-7.0); Hemoglobin* 9.9 gm/dL (12.0-16.0); Lymphocytes Percent Auto 12.9 % (20-44); Mean Corpuscular HGB Conc 32 gm/dL (32-36); Mean Corpuscular Hemoglobin 28 pg (26-34); Mean Corpuscular Volume 88 fL (80-100); Monocytes Percent Auto 8.3 % (0.0-11.0); Neutrophils Percent Auto 76.2 % (42.0-72.0); Platelet Count* 466 K/uL (140-440); Red Blood Count 3.52 m/uL (4.00-5.20); White Blood Count* 11.75 K/uL (4.50-11.00)
[2023-03-10 07:25] LABS: Slide Review Reflex No
[2023-03-10 07:40] LABS: Chloride* 104 mmol/L (96-114)
[2023-03-10 07:41] LABS: Potassium* 3.7 mmol/L (3.6-5.1); Sodium* 138 mmol/L (135-149)
[2023-03-10 07:43] LABS: Carbon Dioxide* 30 mmol/L (20-32); Creatinine* 0.6 mg/dL (0.5-1.5); Estimated Glomerular Filt Rate 98 ml/min
[2023-03-10 07:44] LABS: Blood Urea Nitrogen* 9 mg/dL (7-30); Calcium* 7.8 mg/dL (8.4-10.6); Glucose* 83 mg/dL (60-115)
[2023-03-10] MEDS: IPRAT-ALBUT 0.5-2.5 MG/3 ML NEB 1 NEB IH ×2 (08:46→21:04)
[2023-03-10] MEDS: POTASSIUM CHLORIDE 10 MEQ CAPSULE ER 20 MEQ PO (10:28)
[2023-03-10] MEDS: FUROSEMIDE 10 MG/ML inj 20 MG IVP (10:28)
--- NOTE | 2023-03-10 10:36 | PC.NURSE ---
stoma is currently measuring 1 1/4 length and 3/4 width. Its oval in shape and beefy red color.
--- NOTE | 2023-03-10 10:43 | NUTR.NU ---
RDN with nutrition screen for patient s/p colostomy. Patient was provided diet education related to new colostomy.? Education provided on following a low fiber diet for the next ~4 weeks or per MD recommendation.? Education included recommendations on following a low-fiber diet of less than 13 grams of fiber per day and included foods that are recommended and not recommended.? Verbal and written information as well as sample menus provided from [facility] on nutrition therapy for colostomy and low-fiber diet.?Questions were appropriate and answered. Patient verbalized understanding and had no concerns at this time.? RDN's contact information was provided and patient was encouraged to contact RDN with questions.
--- NOTE | 2023-03-10 13:50 | P.IMPN_ITS ---
Progress Note: A&P Assessment and plan (1) Chronic obstructive pulmonary disease: Problem details: Add DuoNeb today. Continue with other pulmonary hygiene efforts. Continue with efforts to mobilize and ambulate. Status: Acute (2) Pleural effusion: Problem details: Likely from fluid resuscitation and 3rd spacing. Now requiring supplemental oxygen. Continue diuresis. Status: Acute (3) Hypokalemia: Problem details: Potassium supplementation orally and monitor potassium with diuresis. Status: Acute (4) Anemia: Problem details: The drop in hemoglobin from preop to postop is likely due to fluid resu scitation. Hemoglobin is now stable. There is also possibly some degree chronic anemia as patient was very volume depleted on presentation. Status: Acute (5) Colostomy in place: Problem details: Bowel function has returned. Poor appetite but tolerating a soft diet. Needs encouragement to learn colostomy management and provide self cares Status: Acute (6) History of open sigmoidectomy: Problem details: Status post Exploratory laparotomy and Sigmoidectomy with Brandon's pouch and end descending colostomy, 03/04/2023. Status: Acute (7) Substance abuse: Problem details: Methamphetamine on urine tox screen Status: Acute (8) Smoking greater than 40 pack years: Problem details: Nicotine patch. Suspect has COPD. Status: Acute (9) Peritonitis: Problem details: Peritonitis due to perforated diverticulitis with free air in the abdomen. On ertapenem. At high risk for intra-abdominal abscess. Coordinate with surgery the time to transition off IV antibiotics Status: Acute (10) Physical deconditioning: Problem details: Due to surgery and prolonged hospital stay. Needs to increase activity. Status: Acute Plan Continue in hospital for IV antibiotics, supplemental oxygen, therapy to improve physical conditioning and teaching on and colostomy care. Discharge to home when no longer needing IV antibiotics, oxygen and able to care for self in the home. Time Spent With Patient Total time spent: Total time spent today is 45 minutes, 30 minutes in coordination of care discussing with patient other providers ongoing evaluation management of infection, disability, oxygen, discharge planning. Subjective Date Seen: 03/10/23 Interval history: Postop day 6. Hospital day 7. Josselyn Gutierrez is a 67 year old woman who was admitted through the emergency department with 1 day history of shortness of breath.? Patient described that she could not catch her breath.? She also noted abdominal pain with deep breath. Prior to this she was generally feeling well.? In the emergency department she was found to have free air in her abdomen on CT scan.? She was taken emergently to the operating room where she was found to have perforated sigmoid diverticulosis and peritonitis. Hall catheter was in place but has since been removed.? Colostomy bag is in place with some output. She has been some food without nausea or vomiting. She reports a poor appetite and early satiety however. She reports her pain is improving and for the most part adequately controlled. NG tube has been removed. Better able to clear out her throat since NG tube removed, but still has a sense that she can not clear her throat adequately despite Aerobika use, ambulation efforts, and bedside incentive spirometry use. She has had some hypoxia. On admission and in the early postoperative days she had aggressive fluid resuscitation. Subsequently has had some diuresis. Hypoxia was thought primarily due to volume overload. She quit tobacco cold turkey on date of admission to the hospital. She has smoked roughly 1 ppd since 17 years old - about a 50 pyh. She declines nicotine patch or any other nicotine products to help with physical addiction and states she has no desire to smoke at this time. She has a number of concerns about leaving the hospital. She is adamantly opposed to retirement facility but seeking to have someone take care of her stoma for her. She is encouraged to learn ostomy care so she can manage at home. She has been reluctant to participate in stoma care. She has also been relatively sedentary but encouraged to ambulate. She has to go up 3 flights of stairs to get to her apartment. She will be permitted to do stairs but not to do any heavy lifting, greater than 5 lb until 6 weeks after surgery. She will be permitted to drive a motor vehicle to wound clinic appointments as long she is not taking opioid medicine. Exam Narrative: Exam Narrative: She is alert and appears in no distress. Breathing is unlabored. There is no wheezing. No prolonged expiratory phase. Good air exchange all lung villatoro. Cardiovascular: S1, S2, regular rate and rhythm. No murmur gallop or rub. Abdomen: Bowel sounds are present. Stoma has moderate brown stool. Incision is relatively clean except the lower end of the incision where she has some drainage in wound packing. Extremities without edema. She moves all 4 extremities well. Const: Vital Signs, click to edit/add: Vital Signs - 24 hr 03/09/23 15:00 03/09/23 16:30 03/09/23 16:30 Temperature 99 F Pulse Rate [Pulse Oximeter] 92 88 Respiratory Rate 16 16 Blood Pressure [Le ft Arm] 141/68 H Blood Pressure [Ri ght Arm] Pulse Oximetry 93 93 Oxygen Delivery Me thod Room Air Room Air Oxygen Flow Rate 03/09/23 18:38 03/09/23 23:00 03/09/23 23:23 Temperature 98.3 F Pulse Rate [Pulse Oximeter] 92 Respiratory Rate 18 18 Blood Pressure [Le ft Arm] Blood Pressure [Ri ght Arm] 109/64 Pulse Oximetry 86 L 96 96 Oxygen Delivery Me thod Room Air Room Air Nasal Cannula Oxygen Flow Rate 2 2 03/10/23 00:00 03/10/23 03:19 03/10/23 07:00 Temperature 98.9 F Pulse Rate [Pulse Oximeter] 90 Respiratory Rate 18 16 22 Blood Pressure [Le ft Arm] Blood Pressure [Ri ght Arm] 129/54 L Pulse Oximetry 96 93 Oxygen Delivery Me thod Nasal Cannula Nasal Cannula Oxygen Flow Rate 2 2 03/10/23 07:00 03/10/23 08:00 Temperature 99.1 F Pulse Rate [Pulse Oximeter] 88 Respiratory Rate 22 22 Blood Pressure [Le ft Arm] Blood Pressure [Ri ght Arm] 133/70 Pulse Oximetry 93 Oxygen Delivery Me thod Nasal Cannula Oxygen Flow Rate 2 Documenting provider has reviewed patient's vital signs: yes Labs Labs: Laboratory Results - last 24 hr 03/10/23 06:40 WBC 11.75 H RBC 3.52 L Hgb 9.9 L Hct 31.0 L MCV 88 MCH 28 MCHC 32 RDW Coeff of Grace 15.0 Plt Count 466 H Neut % (Auto) 76.2 H Lymph % (Auto) 12.9 L [place] % (Auto) 8.3 Eos % (Auto) 0.3 Baso % (Auto) 0.3 Neut # (Auto) 9.00 H Lymph # (Auto) 1.50 [place] # (Auto) 1.00 H Eos # (Auto) 0.00 Baso # (Auto) 0.00 Sodium 138 Potassium 3.7 Chloride 104 Carbon Dioxide 30 BUN 9 Creatinine 0.6 Estimated GFR 98 Glucose 83 Calcium 7.8 L
--- NOTE | 2023-03-10 13:50 | P.GSPN_ITS ---
Subjective Subjective Date Seen: 03/10/23 Interval history: Patient is doing well. She denies abdominal pain. She is not taking any pain medications. She has been tolerating regular diet. She has stool in her ostomy bag. She diuresed yesterday. She continues to need supplemental oxygen to maintain oxygen saturations above 90. Patient ambulated twice yesterday. Exam Narrative: Exam Narrative: Abdomen is soft, not distended, minimally tender to palpation to the right of her midline laparotomy incision. The midline laparotomy incision does not have surrounding erythema. The skin around the umbilicus is dusky in appearance with no gregorio necrotic areas. The ainsley are intact. The lower part of her laparotomy incision is packed with Nu Gauze. There is no purulence noted. The ostomy bag with pasty stool. Const: Vital Signs, click to edit/add: Vital Signs - 24 hr 03/09/23 15:00 03/09/23 16:30 03/09/23 16:30 Temperature 99 F Pulse Rate [Pulse Oximeter] 92 88 Respiratory Rate 16 16 Blood Pressure [Le ft Arm] 141/68 H Blood Pressure [Ri ght Arm] Pulse Oximetry 93 93 Oxygen Delivery Me thod Room Air Room Air Oxygen Flow Rate 03/09/23 18:38 03/09/23 23:00 03/09/23 23:23 Temperature 98.3 F Pulse Rate [Pulse Oximeter] 92 Respiratory Rate 18 18 Blood Pressure [Le ft Arm] Blood Pressure [Ri ght Arm] 109/64 Pulse Oximetry 86 L 96 96 Oxygen Delivery Me thod Room Air Room Air Nasal Cannula Oxygen Flow Rate 2 2 03/10/23 00:00 03/10/23 03:19 03/10/23 07:00 Temperature 98.9 F Pulse Rate [Pulse Oximeter] 90 Respiratory Rate 18 16 22 Blood Pressure [Le ft Arm] Blood Pressure [Ri ght Arm] 129/54 L Pulse Oximetry 96 93 Oxygen Delivery Me thod Nasal Cannula Nasal Cannula Oxygen Flow Rate 2 2 03/10/23 07:00 03/10/23 08:00 Temperature 99.1 F Pulse Rate [Pulse Oximeter] 88 Respiratory Rate 22 22 Blood Pressure [Le ft Arm] Blood Pressure [Ri ght Arm] 133/70 Pulse Oximetry 93 Oxygen Delivery Me thod Nasal Cannula Oxygen Flow Rate 2 Progress Note: A&P Assessment and plan (1) Perforation of sigmoid colon due to diverticulitis: Problem details: Status post surgery with colostomy. Surgery to manage stoma and surgical incisions. Anticipate problems with volume status and 3rd spacing of fluid in the abdomen. Postoperative ileus. Continue antibiotics for peritonitis. Status: Acute Plan 67-year-old female s/p open sigmoidectomy and end colostomy for perforated purulent diverticulitis POD 6. Will continue working on weaning her off oxygen. I discussed with the patient that she needs to ambulate frequently. Patient does not have any help at home with dressing changes or ostomy cares. We will need to work on PT and OT assessment if patient is able to discharge home safely. Will also need to work with social media sr strategy manager to see if home health nurse can help with her dressing changes. Will continue ertapenem for now since patient had purulent contamination in the abdomen. Patient's WBC has decreased to 11.
--- NOTE | 2023-03-10 14:11 | PC.SOCIAL ---
Met with pt. to discuss discharge plans. Pt. is still adamant she does not want a usp at discharge but is open to home care since she will be off of work for a few weeks due to her lifting restrictions. A message was left with [facility] and [facility] on availability. Pt. will also be seen by the surgeon at outpt. appt. Possible discharge by Wednesday.
[2023-03-10] MEDS: ACETAMINOPHEN 325 MG TABLET 650 MG PO ×2 (15:16→21:03)
--- NOTE | 2023-03-10 16:51 | PC.NURSE ---
Addendum entered by Rosangela Hensley RN 03/10/23 18:02: Charge Nurse asked me to check with patient regarding a primary physician. Patient states she has not seen anyone in over 20 years. She is willing to see whoever. She lives in [place] so i explained that there is an [facility] in [place] and also [facility] [place] location. Explain to her that she will be seeing the surgeon for follow up and she decided to make is easy for her that she is willing to see whoever at our [place] location. For her 3rd walk with nursing she ambulated down to the end of the south hallway and back to her room. She is requesting Tylenol at bedtime. Original Note: End of Shift Note: Patient is upset she feels all we want to do is send her to a residential. Have tried to explain to her that we are looking to come up with the best plan possible for her. She is doing really well with get up oob and ambulating with SBA. Has only taken tylenol for pain as she had a headache after our last walk. She has ambulated times 3 with me and x1 with PT. Did change her appliance today and she did try to watch what I was doing and we went step by step. But d/t location of her stoma I feel she would not be able to change the appliance as she struggles to even see the stoma as its flat and oval shape. will continue to monitor until next shift arrives.
[2023-03-10] MEDS: ENOXAPARIN 40 MG/0.4 ML INJ SUBCUT (21:04)
[2023-03-11 03:00] VITALS: BP 142/77; PULSE 85; RESP 16; TEMP 36.6; O2SAT 93
[2023-03-11] MEDS: ERTAPENEM 1 GM in 0.9 % SODIUM CHLORIDE Mini-bag 100 ML IVPB (06:00)
[2023-03-11] MEDS: ACETAMINOPHEN 325 MG TABLET 650 MG PO ×2 (06:32→21:38)
--- NOTE | 2023-03-11 06:41 | PC.NURSE ---
Pain reported to low back and abdomen, requested tylenol at bedtime. Medication was effective for pain relief. Slept well, up x 3 to use the bathroom. Ambulated independently with cane, patient requesting staff to be in room while utilizing bathroom. Ostomy has scant amount of output, bowel sounds active x 4 quadrants. Shahana reports feeling the need to pass gas but no air noted in ostomy bag. IV to right forearm began leaking during IV abx administration, IV access lost. Production Supv attempted insertion but not successful. Patient stated I'm at my threshold for pain with pokes. Charge nurse notified, awaiting Guerline CARCAMO to attempt insertion. Edema to right upper extremity and BLE.
[2023-03-11 06:47] LABS: Basophils Percent Auto 0.2 % (0.0-3.0); Eosinophils Percent Auto 0.5 % (0.0-7.0); Hematocrit 31.1 % (33.0-51.0); Immature Granulocytes Pct Auto 1.3 %; Lymphocytes Percent Auto 14.3 % (20-44); Mean Corpuscular HGB Conc 32 gm/dL (32-36); Mean Corpuscular Hemoglobin 29 pg (26-34); Mean Corpuscular Volume 89 fL (80-100); Neutrophils Percent Auto 76.7 % (42.0-72.0); Platelet Count* 467 K/uL (140-440); RDW Coefficient of Variation % 15.2 % (11.5-15.5); Red Blood Count 3.51 m/uL (4.00-5.20); White Blood Count* 11.54 K/uL (4.50-11.00)
[2023-03-11 06:52] LABS: Slide Review Reflex No
[2023-03-11 07:08] LABS: Chloride* 106 mmol/L (96-114); Sodium* 140 mmol/L (135-149)
[2023-03-11 07:09] LABS: Potassium* 3.7 mmol/L (3.6-5.1)
[2023-03-11 07:11] LABS: Creatinine* 0.7 mg/dL (0.5-1.5); Estimated Glomerular Filt Rate 95 ml/min
[2023-03-11 07:12] LABS: Blood Urea Nitrogen* 12 mg/dL (7-30); Calcium* 8.1 mg/dL (8.4-10.6); Carbon Dioxide* 27 mmol/L (20-32); Glucose* 104 mg/dL (60-115); Magnesium* 1.9 mg/dL (1.5-2.6)
[2023-03-11 08:02] VITALS: BP 139/78; PULSE 75; RESP 18; TEMP 37.1; O2SAT 95
--- NOTE | 2023-03-11 08:05 | PM.GSPN ---
Subjective Subjective Date Seen: 03/11/23 Interval history: Patient is doing well. She has minimal abdominal pain. She ambulated 5 times yesterday. She had regular food. She normally eats 1 meal a day. She was asking to cut her portions down because it is her normal. She denies any nausea vomiting. There is stool in the bag. Exam Narrative: Exam Narrative: Abdomen is soft, not distended, midline laparotomy incision with no erythema. The periumbilical skin with some dusky appearance is stable. There was stool in the umbilicus. The lower midline incision was repacked by nursing staff and no purulence was noted. The ostomy is close to the midline laparotomy incision and there was stool in the umbilicus. The ostomy appliance was replaced but the pouch change is difficult because of the location of the ostomy. Const: Vital Signs, click to edit/add: Vital Signs - 24 hr 03/10/23 15:00 03/10/23 15:00 03/10/23 15:26 Temperature 98.1 F Pulse Rate [Pulse Oximeter] 101 H 101 H Respiratory Rate 20 20 Blood Pressure [Ri ght Arm] 134/91 H Pulse Oximetry 90 90 Oxygen Delivery Me thod Room Air Room Air 03/10/23 19:00 03/10/23 23:00 03/10/23 23:00 Temperature 98.0 F 97.9 F Pulse Rate [Pulse Oximeter] 87 83 Respiratory Rate 18 14 Blood Pressure [Ri ght Arm] 135/64 118/68 Pulse Oximetry 92 92 92 Oxygen Delivery Me thod Room Air Room Air Room Air 03/11/23 03:00 03/11/23 08:02 03/11/23 08:02 Temperature 97.9 F 98.8 F Pulse Rate [Pulse Oximeter] 85 75 Respiratory Rate 16 18 Blood Pressure [Ri ght Arm] 142/77 H 139/78 Pulse Oximetry 93 95 95 Oxygen Delivery Me thod Room Air Room Air Room Air Progress Note: A&P Assessment and plan (1) Sepsis: Status: Acute Plan 67-year-old female s/p open sigmoidectomy with end colostomy POD 7. Patient is doing well from surgery standpoint. Will see if ostomy nurse can see her as inpatient today. Patient is waiting for disposition-patient would prefer to go home but needs help with ostomy cares and wound repacking.
[2023-03-11] MEDS: IPRAT-ALBUT 0.5-2.5 MG/3 ML NEB 1 NEB IH ×2 (09:35→21:36)
[2023-03-11 12:26] VITALS: BP 101/74; PULSE 80; RESP 16; TEMP 36.7; O2SAT 95
--- NOTE | 2023-03-11 12:34 | PC.SOCIAL ---
[facility] will open pt. to home care services on Wednesday for PT, OT, and nursing. Pt. now has a primary Dr. appointment on on March 22 at 7:30 am. Pt. requests a letter from her physician for her employer on her inability to work for at least 12 weeks. This was shared with the charge nurse.
--- NOTE | 2023-03-11 15:23 | PM.IMPN1 ---
Progress Note: A&P Assessment and plan (1) Sepsis with acute hypoxic respiratory failure: Problem details: I favor sedation from pain medications as well as surgery, abdominal pain and underlying COPD as likely explanations for current hypoxia. Continue to monitor. Appears improved. Does not appear to be having a COPD exacerbation or cardiopulmonary complication. Status: Acute (2) Perforation of sigmoid colon due to diverticulitis: Problem details: Status post surgery with colostomy. Surgery to manage stoma and surgical incisions. Anticipate problems with volume status and 3rd spacing of fluid in the abdomen. Postoperative ileus. Continue antibiotics for peritonitis. Status: Acute (3) Peritonitis: Problem details: Peritonitis due to perforated diverticulitis with free air in the abdomen. On ertapenem. At high risk for intra-abdominal abscess. Coordinate with surgery the time to transition off IV antibiotics Status: Acute (4) History of open sigmoidectomy: Problem details: Status post Exploratory laparotomy and Sigmoidectomy with Brandon's pouch and end descending colostomy, 03/04/2023. Status: Acute (5) Colostomy in place: Problem details: Bowel function has returned. Poor appetite but tolerating a soft diet. Needs encouragement to learn colostomy management and provide self cares Status: Acute (6) Pleural effusion: Problem details: Likely from fluid resuscitation and 3rd spacing. Now requiring supplemental oxygen. Continue diuresis. Status: Acute (7) Chronic obstructive pulmonary disease: Problem details: Add DuoNeb today. Continue with other pulmonary hygiene efforts. Continue with efforts to mobilize and ambulate. Status: Acute (8) Physical deconditioning: Problem details: Due to surgery and prolonged hospital stay. Needs to increase activity. Status: Acute (9) Hypokalemia: Problem details: Potassium supplementation orally and monitor potassium with diuresis. Status: Acute (10) Bacteremia: Problem details: Staph hominis grown in 1 of 2 bottles, likely a contaminant. Vancomycin stopped today. Status: Acute (11) Anemia: Problem details: The drop in hemoglobin from preop to postop is likely due to fluid resuscitation. Hemoglobin is now stable. There is also possibly some degree chronic anemia as patient was very volume depleted on presentation. Status: Acute (12) Hypovolemia: Problem details: Resolved after fluid resuscitation. Patient now likely 3rd spacing, but intravascular volume likely adequate. Status: Acute (13) Substance abuse: Problem details: Methamphetamine on urine tox screen Status: Acute (14) Smoking greater than 40 pack years: Problem details: Nicotine patch. Suspect has COPD. Status: Acute (15) Renal insufficiency: Problem details: Resolved. Status: Acute (16) Malnutrition: Problem details: Nutrition is improving after prolonged period of not eating or eating poorly. Status: Acute Plan Continue in-hospital for treatment of peritonitis and improving conditioning and nutrition with plan to discharge to home. Time Spent With Patient Total time spent: Total time spent today is 40 minutes, 30 minutes in coordination of care discussing with patient and other providers ongoing evaluation management of postop recovery, respiratory problems, discharge planning Subjective Date Seen: 03/11/23 Interval history: Postop day 6. Hospital day 7. Josselyn Gutierrez is a 67 year old woman who was admitted through the emergency department with 1 day history of shortness of breath.? Patient described that she could not catch her breath.? She also noted abdominal pain with deep breath. Prior to this she was generally feeling well.? In the emergency department she was found to have free air in her abdomen on CT scan.? She was taken emergently to the operating room where she was found to have perforated sigmoid diverticulosis and peritonitis. Hall catheter was in place but has since been removed.? Colostomy bag is in place with some output. She has been some food without nausea or vomiting. She reports a poor appetite and early satiety however. She reports her pain is improving and for the most part adequately controlled. NG tube has been removed. Better able to clear out her throat since NG tube removed, but still has a sense that she can not clear her throat adequately despite Aerobika use, ambulation efforts, and bedside incentive spirometry use. She has had some hypoxia. On admission and in the early postoperative days she had aggressive fluid resuscitation. Subsequently has had some diuresis. Hypoxia was thought primarily due to volume overload. She quit tobacco cold turkey on date of admission to the hospital. She has smoked roughly 1 ppd since 17 years old - about a 50 pyh. She declines nicotine patch or any other nicotine products to help with physical addiction and states she has no desire to smoke at this time. She has a number of concerns about leaving the hospital. She is adamantly opposed to residential facility but seeking to have someone take care of her stoma for her. She is encouraged to learn ostomy care so she can manage at home. She has been reluctant to participate in stoma care. She has also been relatively sedentary but encouraged to ambulate. She has to go up 3 flights of stairs to get to her apartment. She will be permitted to do stairs but not to do any heavy lifting, greater than 5 lb until 6 weeks after surgery. She will be permitted to drive a motor vehicle to wound clinic appointments as long she is not taking opioid medicine. Today she reports still some anxiety about discharge but feels like she is making some progress. She still having some abdominal pain. Ostomy output appears to be going fairly well. Her appetite is quite a bit better today and she ate quite a bit better today. She has been up walking in the hallway as well. She is weaned off oxygen. Exam Narrative: Exam Narrative: She is alert. Breathing room air. Mood and affect are brighter today. Respirations are clear to auscultation. Diminished breath sounds without wheezing rales or rhonchi. Cardiovascular: S1, S2, regular rate and rhythm. Abdomen with bowel sounds present. Abdomen is soft with mild diffuse tenderness. There is erythema at the top and bottom of her abdominal incision. Brown stool coming out of the colostomy. Extremities without significant edema. Const: Vital Signs, click to edit/add: Vital Signs - 24 hr 03/10/23 15:26 03/10/23 19:00 03/10/23 23:00 Temperature 98.0 F Pulse Rate [Pulse Oximeter] 101 H 87 Respiratory Rate 20 18 Blood Pressure [Ri t Arm] 135/64 Pulse Oximetry 92 92 Oxygen Delivery Me thod Room Air Room Air 03/10/23 23:00 03/11/23 03:00 03/11/23 08:02 Temperature 97.9 F 97.9 F Pulse Rate [Pulse Oximeter] 83 85 Respiratory Rate 14 16 Blood Pressure [Ri ght Arm] 118/68 142/77 H Pulse Oximetry 92 93 95 Oxygen Delivery Me thod Room Air Room Air Room Air 03/11/23 08:02 03/11/23 12:26 Temperature 98.8 F 98.0 F Pulse Rate [Pulse Oximeter] 75 80 Respiratory Rate 18 16 Blood Pressure [Ri ght Arm] 139/78 101/74 Pulse Oximetry 95 95 Oxygen Delivery Me thod Room Air Room Air Documenting provider has reviewed patient's vital signs: yes Labs Labs: Laboratory Results - last 24 hr 07/06/23 06:15 WBC 11.54 H RBC 3.51 L Hgb 10.0 L Hct 31.1 L MCV 89 MCH 29 MCHC 32 RDW Coeff of Grace 15.2 Plt Count 467 H Neut % (Auto) 76.7 H Lymph % (Auto) 14.3 L [place] % (Auto) 7.0 Eos % (Auto) 0.5 Baso % (Auto) 0.2 Neut # (Auto) 8.90 H Lymph # (Auto) 1.70 [place] # (Auto) 0.80 Eos # (Auto) 0.10 Baso # (Auto) 0.00 Sodium 140 Potassium 3.7 Chloride 106 Carbon Dioxide 27 BUN 12 Creatinine 0.7 Estimated GFR 95 Glucose 104 Calcium 8.1 L Magnesium 1.9 C-Reactive Protein 25.0 H
[2023-03-11 15:27] VITALS: BP 151/72; PULSE 82; RESP 18; TEMP 37.1; O2SAT 94
[2023-03-11] MEDS: MELATONIN 3 MG TABLET PO (21:36)
[2023-03-11] MEDS: ENOXAPARIN 40 MG/0.4 ML INJ SUBCUT (21:36)
[2023-03-11 23:00] VITALS: BP 126/58; PULSE 78; RESP 18; TEMP 36.7; O2SAT 94
[2023-03-12] VITALS (7 sets, daily range): BP systolic 119–161; BP diastolic 63–74; PULSE 65–83; RESP 16–24; TEMP 36.6–37.7; O2SAT 90–95
[2023-03-12] MEDS: ERTAPENEM 1 GM in 0.9 % SODIUM CHLORIDE Mini-bag 100 ML IVPB (05:53)
--- NOTE | 2023-03-12 06:07 | PC.NURSE ---
Patient reporting frustration with lack of sleep, PRN melatonin administered at bedtime. Shahana requesting to be able to get good sleep tonight. Pain to low back reported, well managed with prn tylenol and repositioning. Transfers independently, utilizes cane while ambulating. BLE edema and right elbow edema, extremities elevated on pillow. Stoma appliance intact, no leaking noted.
[2023-03-12 06:55] LABS: Basophils Absolute Auto 0.04 K/uL (0.00-0.30); Basophils Percent Auto 0.4 % (0.0-3.0); Eosinophils Absolute Auto 0.06 K/uL (0.00-0.50); Eosinophils Percent Auto 0.6 % (0.0-7.0); Hematocrit 27.8 % (33.0-51.0); Hemoglobin* 8.9 gm/dL (12.0-16.0); Immature Granulocytes Abs Auto 0.15 K/uL (0.00-0.30); Immature Granulocytes Pct Auto 1.4 %; Lymphocytes Percent Auto 13.2 % (20-44); Mean Corpuscular HGB Conc 32 gm/dL (32-36); Mean Corpuscular Hemoglobin 29 pg (26-34); Mean Corpuscular Volume 89 fL (80-100); Monocytes Percent Auto 8.2 % (0.0-11.0); Neutrophils Percent Auto 76.2 % (42.0-72.0); Platelet Count* 438 K/uL (140-440); RDW Coefficient of Variation % 15.2 % (11.5-15.5); Red Blood Count 3.12 m/uL (4.00-5.20); White Blood Count* 10.86 K/uL (4.50-11.00)
[2023-03-12 07:00] LABS: Slide Review Reflex No
[2023-03-12 07:07] LABS: Chloride* 110 mmol/L (96-114); Potassium* 3.5 mmol/L (3.6-5.1); Sodium* 141 mmol/L (135-149)
[2023-03-12 07:09] LABS: Creatinine* 0.7 mg/dL (0.5-1.5); Estimated Glomerular Filt Rate 95 ml/min
[2023-03-12 07:10] LABS: Blood Urea Nitrogen* 12 mg/dL (7-30); Carbon Dioxide* 23 mmol/L (20-32); Glucose* 105 mg/dL (60-115)
[2023-03-12 07:11] LABS: Calcium* 7.9 mg/dL (8.4-10.6)
--- NOTE | 2023-03-12 07:23 | P.GSPN_ITS ---
Subjective Subjective Date Seen: 03/12/23 Interval history: Patient ambulated several times yesterday. She changed her own ostomy bag and emptied the bag. She is not taking narcotics for pain control. He denies nausea vomiting. She still does not have a very good appetite. Exam Narrative: Exam Narrative: Abdomen is soft, not distended, tender to palpation in the right lower quadrant which is increased compared to yesterday. The midline laparotomy incision is clean with no surrounding erythema. The ostomy appliance is adherent to the left-sided stoma. There is stool in the bag. Const: Vital Signs, click to edit/add: Vital Signs - 24 hr 03/11/23 08:02 03/11/23 08:02 03/11/23 12:26 Temperature 98.8 F 98.0 F Pulse Rate [Pulse Oximeter] 75 80 Respiratory Rate 18 16 Blood Pressure [Ri ght Arm] 139/78 101/74 Pulse Oximetry 95 95 95 Oxygen Delivery Me thod Room Air Room Air Room Air 03/11/23 15:27 03/11/23 15:27 03/11/23 23:00 Temperature 98.8 F Pulse Rate [Pulse Oximeter] 82 Respiratory Rate 18 Blood Pressure [Ri ght Arm] 151/72 H Pulse Oximetry 94 94 94 Oxygen Delivery Me thod Room Air Room Air Room Air 03/11/23 23:00 Temperature 98.1 F Pulse Rate [Pulse Oximeter] 78 Respiratory Rate 18 Blood Pressure [Ri ght Arm] 126/58 L Pulse Oximetry 94 Oxygen Delivery Me thod Room Air Progress Note: A&P Assessment and plan (1) Perforation of sigmoid colon due to diverticulitis: Problem details: Status post surgery with colostomy. Surgery to manage stoma and surgical incisions. Anticipate problems with volume status and 3rd spacing of fluid in the abdomen. Postoperative ileus. Continue antibiotics for peritonitis. Status: Acute Plan 67-year-old female s/p exploratory laparotomy, sigmoidectomy, and end colostomy POD 8. Will continue antibiotics since her white count remained elevated. If the WBC continues to go up, will consider repeating abdominal CT to evaluate for intra- abdominal abscesses. Will also repeat UA to evaluate for UTI. Patient is set u p with home health nurse to start on Wednesday.
--- NOTE | 2023-03-12 08:59 | P.IMCN_ITS ---
Date of Consult Consult date: 03/12/23 Requesting Physician: General Surgery Primary Care Provider: Not a Local Provider Consult Narrative Reason for consult: new colostomy patient Narrative: Josselyn Gutierrez is a 67 year old female being seen today by wound and ostomy services for ongoing ostomy management/education. reports pain well controlled. Ostomy appliance in place with no evidence of leak. Bag 1/2 full with loose brown stool. Patient has independently emptied her ostomy appliance multiple times and feels comfortable with this. patient lives alone independently in an apartment in [place]. States she has no family that lives nearby or in the state. Of no tox screen during ER presentation revealed positive for methamphetamines. COPD, current everyday tobacco use, anemia, note to have physical deconditioning and malnutrition. initially presented to ED on 03/04/23, CT scan showed moderate pneumoperitoneum, and underwent emergent ex lap where she was found to have a perforated sigmoid diverticulitis and peritonitis. Transition to open sigmoidectomy. Brandon's pouch and colostomy were created Review of Systems Status of ROS: Reports: 6 or more systems reviewed and unremarkable except as noted in History and below [facility] Medical History (Updated 03/22/23 @ 08:00 by Lidia Castaneda MD) History of open sigmoidectomy ?Z98.890 - Other specified postprocedural states (ICD-10) ?Z90.49 - Acquired absence of other specified parts of digestive tract (ICD- 10) Sepsis with acute hypoxic respiratory failure ?A41.9 - Sepsis, unspecified organism (ICD-10) ?R65.20 - Severe sepsis without septic shock (ICD-10) ?J96.01 - Acute respiratory failure with hypoxia (ICD-10) Surgical History H/O exploratory laparotomy ?Z98.890 - Other specified postprocedural states (ICD-10) H/O knee surgery ?Z98.890 - Other specified postprocedural states (ICD-10) Social History Narrative: Patient is self-employed and does heavy lifting for living. Smoking Status: Current every day smoker Non-prescribed substance use: denies use Meds Home Medications and Allergies Home Medications Medication Instructions Recorded Confirmed Type No Known Home Medications 03/04/23 03/04/23 History Allergies Allergy/AdvReac Type Severity Reaction Status Date / Time No Known Drug Allergies Allergy Verified 03/12/23 15:54 Exam Narrative: Exam Narrative: Gen: NAD, alert abd: midline surgical wound WNL. colostomy to Left abd, gas in bag, small amount of liquid stool. stoma edematous, but appears patent. Pulmonary: Unlabored, symmetrical rise Psych: Makes good eye contact, verbalizes frustration/anxiety surrounding her current disposition. Const: Vital Signs, click to edit/add: Vital Signs - 24 hr 03/11/23 12:26 03/11/23 15:27 03/11/23 15:27 Temperature 98.0 F 98.8 F Pulse Rate [Pulse Oximeter] 80 82 Respiratory Rate 16 18 Blood Pressure [Ri ght Arm] 101/74 151/72 H Pulse Oximetry 95 94 94 Oxygen Delivery Me thod Room Air Room Air Room Air 03/11/23 23:00 03/11/23 23:00 03/12/23 07:33 Temperature 98.1 F 98.2 F Pulse Rate [Pulse Oximeter] 78 65 Respiratory Rate 18 18 Blood Pressure [Ri ght Arm] 126/58 L 119/63 Pulse Oximetry 94 94 94 Oxygen Delivery Me thod Room Air Room Air Room Air Documenting provider has reviewed patient's vital signs: yes Labs Labs: Short CBC 03/12/23 Range/Units 06:21 WBC 10.86 (4.50-11.00) K/uL Hgb 8.9 L (12.0-16.0) gm/dL Hct 27.8 L (33.0-51.0) % Plt Count 438 (140-440) K/uL [facility] 03/12/23 06:21 Sodium 141 Potassium 3.5 L Chloride 110 Carbon Dioxide 23 BUN 12 Creatinine 0.7 Glucose 105 Calcium 7.9 L Assessment and Plan Assessment and plan (1) Colostomy in place: Problem comment: Bowel function has returned. Poor appetite but tolerating a soft diet. Beginning to do self management of colostomy Status: Acute Assessment and Plan: ostomy change completed by this investment underwriter, education/demonstration completed throughout. education on colostomy self-care completed. Patient will f/u with ostomy clinic. (2) Perforation of sigmoid colon due to diverticulitis: Problem comment: Status post surgery with colostomy. Surgery to manage stoma and surgical incisions. Postoperatively making slow progress with return to normal diet and normal activity. Pain well controlled. Status: Acute Plan ostomy pouch changed by this investment underwriter, patient educated on ostomy appliance change, colostomy nutrition,
[2023-03-12] MEDS: POTASSIUM CHLORIDE 10 MEQ CAPSULE ER PO (09:31)
[2023-03-12] MEDS: IPRAT-ALBUT 0.5-2.5 MG/3 ML NEB 1 NEB IH ×3 (09:31→21:33)
[2023-03-12] MEDS: ACETAMINOPHEN 325 MG TABLET 650 MG PO (09:34)
--- NOTE | 2023-03-12 10:50 | P.IMPN_ITS ---
Progress Note: A&P Assessment and plan (1) Perforation of sigmoid colon due to diverticulitis: Problem details: Status post surgery with colostomy. Surgery to manage stoma and surgical incisions. Postoperatively making slow progress with return to normal diet and normal activity. Pain well controlled. Status: Acute (2) Sepsis: Problem details: Resolved. Continuing on ertapenem until discharge for management of peritonitis Status: Acute (3) Peritonitis: Problem details: Peritonitis due to perforated diverticulitis with free air in the abdomen. On ertapenem. At high risk for intra-abdominal abscess. Coordinate with surgery the time to transition off IV antibiotics Status: Acute (4) Malnutrition: Problem details: Nutrition is improving after prolonged period of not eating or eating poorly. Status: Acute (5) Physical deconditioning: Problem details: Due to surgery and prolonged hospital stay. Now ambulating independently Status: Acute (6) Chronic obstructive pulmonary disease: Problem details: No obvious COPD exacerbation. Continue to monitor for postop pulmonary complications Status: Acute (7) Pleural effusion: Problem details: Likely from fluid resuscitation and 3rd spacing. Received diuresis and responded well. Status: Acute (8) Hypokalemia: Problem details: Potassium supplementation orally and monitor potassium . Status: Acute (9) Bacteremia: Problem details: Staph hominis grown in 1 of 2 bottles, likely a contaminant. Vancomycin stopped today. Status: Acute (10) Anemia: Problem details: The drop in hemoglobin from preop to postop is likely due to fluid resuscitation. Hemoglobin is now stable. There is also possibly some degree chronic anemia as patient was very volume depleted on presentation. Outpatient follow-up for anemia Status: Acute (11) Hypovolemia: Problem details: Resolved after fluid resuscitation. With sepsis and third-spacing of fluid required fluid aggressive resuscitation. Status: Acute (12) Colostomy in place: Problem details: Bowel function has returned. Poor appetite but tolerating a soft diet. Beginning to do self management of colostomy Status: Acute (13) History of open sigmoidectomy: Problem details: Status post Exploratory laparotomy and Sigmoidectomy with Brandon's pouch and end descending colostomy, 03/04/2023. Status: Acute (14) Sepsis with acute hypoxic respiratory failure: Problem details: Post operative hypoxia due to underlying COPD, sedation from pain medications, abdominal surgery with peritonitis causing pain with breathing. Now resolved Status: Acute Plan Continue in-hospital with anticipated discharge in 2 days. At that time she will probably be able to get off of IV antibiotics. Plan is to start home care Wednesday for dressing changes and wound care. Time Spent With Patient Total time spent: Total time spent today is 40 minutes, 30 minutes in coordination of care and discussing with patient other providers management of peritonitis, postoperative recovery and disposition to home Subjective Date Seen: 03/12/23 Interval history: Postop day 6. Hospital day 7. Josselyn Gutierrez is a 67 year old woman who was admitted through the emergency department with 1 day history of shortness of breath.? Patient described that she could not catch her breath.? She also noted abdominal pain with deep breath. Prior to this she was generally feeling well.? In the emergency department she was found to have free air in her abdomen on CT scan.? She was taken emergently to the operating room where she was found to have perforated sigmoid diverticulosis and peritonitis. Hall catheter was in place but has since been removed.? Colostomy bag is in place with some output. She has been some food without nausea or vomiting. She reports a poor appetite and early satiety however. She reports her pain is improving and for the most part adequately controlled. NG tube has been removed. Better able to clear out her throat since NG tube removed, but still has a sense that she can not clear her throat adequately despite Aerobika use, ambulation efforts, and bedside incentive spirometry use. She has had some hypoxia. On admission and in the early postoperative days she had aggressive fluid resuscitation. Subsequently has had some diuresis. Hypoxia was thought primarily due to volume overload. She quit tobacco cold turkey on date of admission to the hospital. She has s moked roughly 1 ppd since 17 years old - about a 50 pyh. She declines nicotine patch or any other nicotine products to help with physical addiction and states she has no desire to smoke at this time. She has a number of concerns about leaving the hospital. She is adamantly opposed to senior care facility but seeking to have someone take care of her stoma for her. She is encouraged to learn ostomy care so she can manage at home. She has been reluctant to participate in stoma care. She has also been relatively sedentary but encouraged to ambulate. She has to go up 3 flights of stairs to get to her apartment. She will be permitted to do stairs but not to do any heavy lifting, greater than 5 lb until 6 weeks after surgery. She will be permitted to drive a motor vehicle to wound clinic appointments as long she is not taking opioid medicine. Patient continues to improve. She is now ambulating independently. She is walking to the bathroom on her own. She is eating better though she reports her appetite is not much improved. She is not requiring oxygen and reports no shortness of breath. Her abdominal pain is getting better. Her chronic back pain is bothering her more than her abdominal pain. Primarily using Tylenol for that. She is managing her ostomy. Exam Narrative: Exam Narrative: She is alert and appears in no distress. Mood and affect are bright. She is talkative today. Respirations are clear to auscultation. She has diminished breath sounds. No wheezing rales or rhonchi. Cardiovascular: S1, S2, regular rate and rhythm. Abdomen with present bowel sounds. Abdomen is soft. She still has moderate tenderness to the right side of her midline incision. There is some erythema along the incision with dressings and packing in the wound. Small amount of brown stool in the colostomy bag. No edema. Const: Vital Signs, click to edit/add: Vital Signs - 24 hr 03/11/23 12:26 03/11/23 15:27 03/11/23 15:27 Temperature 98.0 F 98.8 F Pulse Rate [Pulse Oximeter] 80 82 Respiratory Rate 16 18 Blood Pressure [Ri ght Arm] 101/74 151/72 H Pulse Oximetry 95 94 94 Oxygen Delivery Me thod Room Air Room Air Room Air 03/11/23 23:00 03/11/23 23:00 03/12/23 07:33 Temperature 98.1 F 98.2 F Pulse Rate [Pulse Oximeter] 78 65 Respiratory Rate 18 18 Blood Pressure [Ri ght Arm] 126/58 L 119/63 Pulse Oximetry 94 94 94 Oxygen Delivery Me thod Room Air Room Air Room Air 03/12/23 09:00 Temperature Pulse Rate [Pulse Oximeter] Respiratory Rate Blood Pressure [Ri ght Arm] Pulse Oximetry Oxygen Delivery Me thod Room Air Documenting provider has reviewed patient's vital signs: yes Labs Labs: Laboratory Results - last 24 hr 03/12/23 06:21 WBC 10.86 RBC 3.12 L Hgb 8.9 L Hct 27.8 L MCV 89 MCH 29 MCHC 32 RDW Coeff of Grace 15.2 Plt Count 438 Neut % (Auto) 76.2 H Lymph % (Auto) 13.2 L [place] % (Auto) 8.2 Eos % (Auto) 0.6 Baso % (Auto) 0.4 Neut # (Auto) 8.30 H Lymph # (Auto) 1.40 [place] # (Auto) 0.90 Eos # (Auto) 0.06 Baso # (Auto) 0.04 Abs Immat Gran (auto) 0.15 Imm/Tot Granulo (auto) 1.4 Sodium 141 Potassium 3.5 L Chloride 110 Carbon Dioxide 23 BUN 12 Creatinine 0.7 Estimated GFR 95 Glucose 105 Calcium 7.9 L C-Reactive Protein 21.0 H
--- NOTE | 2023-03-12 12:02 | PC.SOCIAL ---
Face to face for home care orders was completed by and faxed to [facility] by charge nurse. [facility] confirmed that nurse (Maria A) will start services on Wednesday at pt's home at 12:00 - 12:30 pm. Provided information to pt. Social work will follow up as needed.
--- NOTE | 2023-03-12 14:41 | CRLHL7_ITS ---
For Patients: As a result of the Century Cures Act, medical imaging exams and procedure reports are released immediately into your electronic medical record. You may view this report before your referring provider. If you have questions, please contact your health care provider. INDICATION: Recent abdominal pain, right flank pain and abdominal wall swelling, no flatus TECHNIQUE: CT abdomen and pelvis acquired with 71 cc Isovue 370 IV contrast. COMPARISON: CT abdomen pelvis March 04, 2023 FINDINGS: Lower chest: Small bilateral effusions with bilateral lower lobe compressive atelectasis. Liver: Unremarkable. Spleen: Unremarkable. Pancreas: Unremarkable. Gallbladder and bile ducts: Unremarkable Adrenal glands: Bilateral adrenal gland thickening. Kidneys: Unremarkable. GI tract: Status post subtotal colectomy with creation of Brandon`s pouch and left lower quadrant colostomy. There is an 8.1 x 2.4 x 4.0 cm rim enhancing fluid collection directly adjacent to anastomotic suture line in the Brandon`s pouch. Vascular structures: Aortoiliac calcifications. 2.9 cm infrarenal abdominal aortic aneurysm. Lymph nodes: Unremarkable. Miscellaneous: Midline laparotomy skin ainsley. Mild anasarca. Pelvic Organs: Unremarkable. Bones: Unremarkable for age. IMPRESSION: Status post subtotal colectomy with creation of Brandon`s pouch and left lower quadrant colostomy. Greater than 8 cm abscess in the pelvis directly adjacent to anastomotic suture line in the Brandon`s pouch. No evidence for bowel obstruction. Small bilateral pleural effusions with bilateral lower lobe compressive atelectasis. Bilateral adrenal gland hyperplasia. 2.9 cm infrarenal abdominal aortic aneurysm. Findings discussed with Dr. Brady at 4:56 p.m. on March 12, 2023. Please note that all CT scans at this facility use dose modulation, iterative reconstruction, and/or weight-based dosing when appropriate to reduce radiation dose to as low as reasonably achievable. Dictated by Nancy Khanna MD @ 03/12/2023 4:47:38 PM (Electronically Signed)
--- NOTE | 2023-03-12 14:44 | PM.IMPN1 ---
Progress Note: A&P Assessment and plan (1) History of open sigmoidectomy: Problem details: Status post Exploratory laparotomy and Sigmoidectomy with Brandon's pouch and end descending colostomy, 03/04/2023. Status: Acute (2) Colostomy in place: Problem details: Bowel function has returned. Poor appetite but tolerating a soft diet. Beginning to do self management of colostomy Status: Acute Plan New abdominal pain and swelling with decreased ostomy output. Obtain urgent CT abdomen and pelvis and recheck hemoglobin. I spoke with Dr. Guy from General surgery over the phone to update her as well. Subjective Time Seen by Provider: 14:35 Date Seen: 03/12/23 Interval history: Wound care came in changed her ostomy bag around 8 this morning. Since then Shahana has not had any stool or gas in the bag. This afternoon while ambulating she had sudden onset of right-sided pain and has a darkish bulge just superior and to the right of the umbilicus. She also complains of shortness of breath. Exam Narrative: Exam Narrative: General: No acute distress, awake alert oriented x3. Abdomen: Bowel sounds present on the right. Distended, tender with a hard dark purple mass approximately the size of a golf ball to the right of midline, superior to the umbilicus. Const: Vital Signs, click to edit/add: Vital Signs - 24 hr 03/11/23 15:27 03/11/23 15:27 03/11/23 23:00 Temperature 98.8 F Pulse Rate [Pulse Oximeter] 82 Respiratory Rate 18 Blood Pressure [Ri ght Arm] 151/72 H Pulse Oximetry 94 94 94 Oxygen Delivery Me thod Room Air Room Air Room Air 03/11/23 23:00 03/12/23 07:33 03/12/23 09:00 Temperature 98.1 F 98.2 F Pulse Rate [Pulse Oximeter] 78 65 Respiratory Rate 18 18 Blood Pressure [Ri ght Arm] 126/58 L 119/63 Pulse Oximetry 94 94 Oxygen Delivery Me thod Room Air Room Air Room Air 03/12/23 11:03 03/12/23 14:40 Temperature 98.2 F 98.3 F Pulse Rate [Pulse Oximeter] 74 76 Respiratory Rate 20 24 Blood Pressure [Ri ght Arm] 119/65 127/74 Pulse Oximetry 91 93 Oxygen Delivery Me thod Room Air Room Air Labs Labs: Laboratory Results - last 24 hr 03/12/23 06:21 WBC 10.86 RBC 3.12 L Hgb 8.9 L Hct 27.8 L MCV 89 MCH 29 MCHC 32 RDW Coeff of Grace 15.2 Plt Count 438 Neut % (Auto) 76.2 H Lymph % (Auto) 13.2 L [place] % (Auto) 8.2 Eos % (Auto) 0.6 Baso % (Auto) 0.4 Neut # (Auto) 8.30 H Lymph # (Auto) 1.40 [place] # (Auto) 0.90 Eos # (Auto) 0.06 Baso # (Auto) 0.04 Abs Immat Gran (auto) 0.15 Imm/Tot Granulo (auto) 1.4 Sodium 141 Potassium 3.5 L Chloride 110 Carbon Dioxide 23 BUN 12 Creatinine 0.7 Estimated GFR 95 Glucose 105 Calcium 7.9 L C-Reactive Protein 21.0 H
[2023-03-12 15:03] LABS: Hemoglobin* 9.5 gm/dL (12.0-16.0)
--- NOTE | 2023-03-12 15:22 | PC.NURSE ---
VSS on RA, Pt had no colostomy output this shift, went on 1 walk then experienced severe 6/10 pain in right side of abdomen.. noted to be bulging as well... Dr Hernandez was notified. Stat Hemoglobin, and CT were ordered.
[2023-03-12] MEDS: HYDROmorphone 0.5 mg/0.5 ml inj IVP ×2 (18:21→22:59)
[2023-03-12] MEDS: MELATONIN 3 MG TABLET PO (18:21)
--- NOTE | 2023-03-12 18:37 | P.EN_ITS ---
Chart Event Note Time Seen by Provider: 18:37 Date Seen: 03/12/23 Chart Event Note: Patient had increasing abdominal pain just to the right of her umbilicus today. She also had no ostomy output during the day today. Repeat CT scan was obtained to evaluate. This showed an 8 x 4 x 2.4 cm abscess near the suture line of Brandon's pouch in her pelvis. I spoke with Dr. [facility], the surgeon, who recommended we attempt to manage this by percutaneous drainage of the abscess. I have contacted Interventional Radiology at [facility]. Looking to arrange for transfer for percutaneous drainage of this abscess.
--- NOTE | 2023-03-12 18:54 | PC.NURSE ---
SHIFT NOTE 15-19: Pt A&O, disappointed about the results of her CT scan. Up 1 assist and a walker, moving slowly, increased pain with exertion. No output from ostomy, bowel sounds active, pt denies N/V. SOB with exertion. Denies chest pain. Pt reports pain 1-4/10, PRN Dilaudid given with pt reporting relief. Active ice to lower back.
[2023-03-12] MEDS: LACTATED RINGERS 1000 ML 1,000 ML 125 ML IV (21:32)
[2023-03-12] MEDS: ENOXAPARIN 40 MG/0.4 ML INJ SUBCUT (21:32)
--- NOTE | 2023-03-13 01:35 | PC.NURSE ---
Transferred to [facility] room 7232 nurse to nurse given to Halima at [phone]. [facility] transferred at [id number], pt belongings collected and sent with EMS. Pain medication adminsitered prior to transfer, IV intact with fluids running in right forearm.
--- NOTE | 2023-03-31 12:26 | PM.DST ---
Transfer Discharge Sum: Prov Provider Date Seen: 03/12/23 Date of admission: 03/04/23 09:10 Primary care physician: Not a Local Provider Consults: 03/05/23 13:58 Consult to Administration Assistant [CONS] Routine Comment: Financial concerns Reason for Consult:: Social Service Consult 03/07/23 08:53 Consult to Respiratory Therapy [CONS] Routine Comment: Reason(s) for RT Consult:: Consult Comment: [employer] teaching 03/09/23 10:30 Consult to Occupational Therapy [CONS] Routine Comment: Reason(s) for OT Consult:: ADLs Prior to Discharge Any Restrictions?:: No Restrictions Consult to Physical Therapy [CONS] Routine Comment: Reason(s) for PT Consult:: Evaluate and Treat Any Restrictions?:: No Restrictions 03/11/23 08:01 Consult to Wound Care [CONS] Routine Comment: Consulting Provider: Annmarie Flannery Attending physician on discharge: Burak Brady Anticipated date of transfer: 03/12/23 Receiving physician/facility: [facility] DS: Diagnosis Discharge Diagnosis (1) Perforation of sigmoid colon due to diverticulitis: Status: Acute Problem details: Status post surgery with colostomy. Surgery to manage stoma and surgical incisions. Postoperatively making slow progress with return to normal diet and normal activity. Pain well controlled. (2) Smoking greater than 40 pack years: Status: Acute Problem details: Nicotine patch. Suspect has COPD. (3) Anemia: Status: Acute Problem details: The drop in hemoglobin from preop to postop is likely due to fluid resuscitation. Hemoglobin is now stable. There is also possibly some degree chronic anemia as patient was very volume depleted on presentation. Outpatient follow-up for anemia (4) Hypokalemia: Status: Acute Problem details: Potassium supplementation orally and monitor potassium . (5) Chronic obstructive pulmonary disease: Status: Acute Problem details: No obvious COPD exacerbation. Continue to monitor for postop pulmonary complications (6) Peritonitis: Status: Acute Problem details: Peritonitis due to perforated diverticulitis with free air in the abdomen. On ertapenem. At high risk for intra-abdominal abscess. Coordinate with surgery the time to transition off IV antibiotics (7) Malnutrition: Status: Acute Problem details: Nutrition is improving after prolonged period of not eating or eating poorly. (8) Substance abuse: Status: Acute Problem details: Methamphetamine on urine tox screen (9) Colostomy in place: Status: Acute Problem details: Bowel function has returned. Poor appetite but tolerating a soft diet. Beginning to do self management of colostomy Transfer Discharge Sum: Med Medications Active and Home Medications: Home Medications No Known Home Medications 03/04/23 [History Confirmed 03/04/23] Transfer Discharge Sum: Hosp Hospital Course Hospital course: Josselyn Gutierrez is a 67 year old with methamphetamine use who underwent exploratory laparotomy with sigmoidectomy with Brandon's pouch and end descending colostomy due to diverticulitis with peritonitis and sepsis. During the post op period she received potassium supplementation for hypokalemia and was noted to have return of bowel function. On 03/12/23, she had increased abdominal pain and no ostomy output. CT abdomen and pelvis showed an 8 x 4 x 2.4 cm abscess near the suture line of Brandon's pouch in her pelvis. She was transferred to [facility] for IR percutaneous drainage of the abscess. Time Spent with Patient Time attestation: Total time spent providing and/or coordinating transfer services: Exam Narrative: Exam Narrative: See progress note of same date. Transfer Discharge Sum: Data Data Completed and Pending Completed studies during hospitalization: Procedures Bypass Descending Colon to Cutaneous, Open Approach (03/04/23) Introduction of Other Gas into Respiratory Tract, Via Natural or Artificial Opening (03/04/23) Resection of Sigmoid Colon, Open Approach (03/04/23) Discharge Plan Discharge Disposition: er Short-Term Hosp Date of Admission: 03/04/23 09:10 Attending Physician on Admission: Clint [facility] Attending Provider on Discharge: Burak Brady Consulting Providers: Annmarie Flannery; Burak Brady; Beatriz Hernandez Ashley P; Billy Gil Primary Care Provider: Provider,Not a Local Condition: Stable Discharge Medications: No Action No Known Home Medications Discharge Orders: Discharge Order (Routine); Ordered 03/12/23 Ordered By: Burak Brady Follow Up Appointments: [facility] [Outside] (Patient being transferred to [facility].) [facility] [Outside] - 03/19/23 1:00 pm ([facility] - Ostomy ) Lidia Castaneda MD [Staff Physician] - 03/22/23 7:30 am ([facility] and [facility]) Forms: MyHealth Info Instructions Hospital Course: Patient seen examined, prior records reviewed. Patient presents today with shortness of breath and abdominal spasms all day yesterday. Was constipated but that is resolved. On exam here, tachycardic, lungs clear, afebrile. No abdominal tenderness on exam although patient has abdominal binder on. Labs and x-ray ordered.
== END 2023-03-12 23:56 | disposition short-term general hospital (02) | DRG 329 ==
LOC: ED 03:34 → SS 03:50 → MEDSURG 09:13
PROVIDERS: Family Medicine; Internal Medicine; Surgery; Admitting Provider Surgery; Emergency Provider Family Medicine; Visit Provider Surgery
PROC: 0DTN0ZZ Resection of Sigmoid Colon, Open Approach (ICD-10-PCS; CPT 49000; principal; 2023-03-04 04:30)
DX: K57.20 Diverticulitis of large intestine with perforation and abscess without bleeding; A41.9 Sepsis, unspecified organism; K65.0 Generalized (acute) peritonitis; K65.1 Peritoneal abscess; J95.821 Acute postprocedural respiratory failure; T81.49XA Infection following a procedure, other surgical site, initial encounter; K91.89 Other postprocedural complications and disorders of digestive system; K56.7 Ileus, unspecified; K91.2 Postsurgical malabsorption, not elsewhere classified; J98.11 Atelectasis; J95.89 Other postprocedural complications and disorders of respiratory system, not elsewhere classified; J90 Pleural effusion, not elsewhere classified; D62 Acute posthemorrhagic anemia; F15.10 Other stimulant abuse, uncomplicated; E87.6 Hypokalemia; E86.1 Hypovolemia; J44.9 Chronic obstructive pulmonary disease, unspecified; I71.43 Infrarenal abdominal aortic aneurysm, without rupture; I44.4 Left anterior fascicular block; K21.9 Gastro-esophageal reflux disease without esophagitis; N28.9 Disorder of kidney and ureter, unspecified; F17.210 Nicotine dependence, cigarettes, uncomplicated; G89.18 Other acute postprocedural pain
CPT/HCPCS: 00840; 36415; 64488; 71045; 71250; 74018; 74176; 74177; 76942; 80048; 80076; 80306; 81003; 81015; 82040; 82330; 82803; 83605; 83690; 83735; 83880; 84484; 85018; 85025; 86140; 87040; 87086; 87186; 88307; 93005; 94640; 94664; 94761; 97110; 97116; 97162; 97166; 97530; 97535; 99140; 99285; 99291; 99292; A9270; C9290; J0330; J1100; J1170; J1335; J1650; J1940; J2370; J2405; J2543; J2704; J2710; J3010; J3370; J3480; J3490; J7030; J7050; J7120; Q9967; S4990

== ENCOUNTER 2023-03-22 07:28 | Outpatient (CLI) | payer MEDICARE, SELFPAY | END 2023-03-22 07:29 | disposition home or self-care (01) | LOC: NFLDREF 03-23 13:13 | PROVIDERS: Visit Provider Family Medicine | DX: R39.89 Other symptoms and signs involving the genitourinary system (principal); R23.1 Pallor; K92.1 Melena; Z93.3 Colostomy status; D64.9 Anemia, unspecified; D50.0 Iron deficiency anemia secondary to blood loss (chronic) | CPT/HCPCS: 87086 ==